=== PATIENT | male | born 1970 | race Caucasian/White ===

== ENCOUNTER 2020-05-17 09:13 | Outpatient (CLI) | payer OTHER, SELFPAY ==
--- NOTE | ~2020-05-17 | US_ITS ---
EXAMINATION: US soft tissue buttock RT DATE: 05/17/2020 09:48 INDICATION: Right buttock mass in an area where bedsores developed after surgery in 2016. TECHNIQUE: Multiple grayscale and Doppler ultrasound images of the right buttock were obtained. COMPARISON: None FINDINGS: There is a 3.7 x 2.3 x 3.3 cm hypoechoic mass with macrocalcifications involving the subcut aneous fat and musculature in the right buttock. IMPRESSION: 1. Mass with macrocalcifications involving the subcutaneous fat and musculature in the right buttock, most likely fat necrosis given the clinical history. Reviewed, dictated and finalized at location A. [employer]
[2020-05-17 10:23] LABS: Basophils Absolute Auto 0.1 K/mm3 (0.0-0.1); Basophils Percent Auto 0.6 % (0.2-1.2); Eosinophils Absolute Auto 0.2 K/mm3 (0-0.3); Eosinophils Percent Auto 1.4 % (0-4.4); Hematocrit 38.7 % (42.0-52.0); Hemoglobin 13.6 g/dL (14.0-18.0); Immature Granulocyte Percent A 0.9 % (0-0.5); Immature Reticulocyte Fraction 15.5 % (3.0-15.9); Lymphocytes Absolute Auto 1.44 K/mm3 (0.9-3.2); Lymphocytes Percent Auto 13.4 % (18.3-44.2); Mean Corpuscular HGB Conc 35.1 g/dl (32-36); Mean Corpuscular Volume 108.1 fl (80-100); Mean Platelet Volume 9.7 fl (7.4-10.4); Monocytes Absolute Auto 0.9 K/mm3 (0.1-0.6); Monocytes Percent Auto 8.4 % (2.6-8.5); Neutrophils Absolute Auto 8.1 K/mm3 (1.3-6.7); Neutrophils Percent Auto 75.3 % (45.5-73.1); Platelet Count Result 269 k/mm3 (150-375); Red Blood Count 3.58 M/mm3 (4.6-6.20); Red Cell Distribution Width 12.9 % (11.5-14.5); Reticulocyte Hemoglobin Conten 40.7 pg (28.2-35.7); Reticulocyte Percent 1.81 % (0.7-4.3); Reticulocytes Absolute 0.06 B/L (32.2-175.7); White Blood Count 10.8 K/mm3 (4.5-10.0)
[2020-05-17 10:56] LABS: Iron 102 ug/dL (49-181)
[2020-05-17 11:04] LABS: Alanine Aminotransferase 25 U/L (4-50); Albumin Level 3.9 g/dL (3.5-5.1); Alkaline Phosphatase 104 U/L (38-126); Anion Gap 6 mmol/L (8-16); Aspartate Amino Transferase 36 U/L (17-59); Bilirubin,Total 0.5 mg/dL (0.2-1.3); Blood Urea Nitrogen 16 mg/dL (9-20); Calcium 9.2 mg/dL (8.4-10.2); Carbon Dioxide 27 mmol/L (22-30); Chloride 104 mmol/L (98-107); Cholesterol 215 mg/dL (0-200); Estimated Glomerular Filt Rate > 60; Glucose 90 mg/dL (75-110); HDL Direct 65 mg/dL; Lactate Dehydrogenase 581 U/L (313-618); Percent Iron Saturation 32 % (20-50); Potassium 3.8 mmol/L (3.4-5.0); Sodium 137 mmol/L (137-145); Triglycerides 275 mg/dL (<150)
[2020-05-17 11:10] LABS: Vitamin D 25 Hydroxy 23.3 ng/mL
[2020-05-17 11:12] LABS: Creatinine Urine 112.1 mg/dL
[2020-05-17 11:15] LABS: LDL Cholesterol Direct 134 mg/dL; Transferrin 268 mg/dL (206-381)
[2020-05-17 11:17] LABS: MALB Creatinine Ratio < 5.4 mg/g (0-30); Microalbumin Urine Random < 6.0 mg/L (0-16.7)
[2020-05-17 11:35] LABS: Prostate Specific Antigen 0.5 ng/mL (< OR = 4.0)
[2020-05-17 12:09] LABS: Folic Acid 5.8 ng/mL (2.76->20)
[2020-05-17 13:33] LABS: Free T4 Free Thyroxine 0.77 ng/mL (0.78-2.19)
[2020-05-20 06:13] LABS: Triiodothyronine T3 Free 3.6 pg/mL (2.3-4.2)
== END 2020-05-17 09:14 | disposition home or self-care (01) ==
PROVIDERS: PCP Family Medicine; Visit Provider Nurse Practitioner Family
DX: M79.89 Other specified soft tissue disorders (principal)
CPT/HCPCS: 36415; 76705; 80053; 80061; 82043; 82306; 82607; 82728; 82746; 83540; 83550; 83615; 84153; 84439; 84443; 84466; 84481; 85025; 85046; G0103

== ENCOUNTER 2020-07-27 10:46 | Outpatient (CLI) | payer OTHER, SELFPAY ==
[2020-07-27 11:45] LABS: INR 0.9; Prothrombin Time 12.3 Seconds (11.1-14.7)
== END 2020-07-27 10:47 | disposition home or self-care (01) ==
LOC: ANHLAB 10:48
PROVIDERS: PCP Family Medicine; Visit Provider Surgery
DX: F10.20 Alcohol dependence, uncomplicated (principal)
CPT/HCPCS: 36415; 85610; 85730

== ENCOUNTER → 2020-08-07 03:46 | Outpatient (CLI) | payer OTHER, SELFPAY ==
[2020-08-07 20:31] LABS: SARS-CoV-2 RNA PCR Negative
== END ==
PROVIDERS: PCP Family Medicine; Visit Provider Surgery
DX: Z01.812 Encounter for preprocedural laboratory examination (principal); Z20.822 Contact with and (suspected) exposure to COVID-19
CPT/HCPCS: 93005; C9803; U0003; U0005

== ENCOUNTER 2020-08-07 09:30 | Outpatient (CLI) | payer OTHER, SELFPAY ==
--- NOTE | 2020-08-07 11:30 | ECG_ITS ---
Measurements Intervals [place] Rate: 95 P: 39 OR: 153 QRS: 41 QRSD: 93 T: 31 QT: 340 QTc: 428 Interpretive Statements SINUS RHYTHM BORDERLINE ST-T WAVE ABNORMALITY- ANTERIOR LEADS BASELINE ARTIFACT- I, II, AVR BORDERLINE ECG Electronically Signed On 08-07-2020 9:56:24 CDT by Good Reyes D.O.
== END 2020-08-07 09:31 | disposition home or self-care (01) ==
LOC: ANHSURGERY 09:34
PROVIDERS: PCP Family Medicine; Visit Provider Surgery
DX: Z01.810 Encounter for preprocedural cardiovascular examination (principal); F17.210 Nicotine dependence, cigarettes, uncomplicated; I10 Essential (primary) hypertension
CPT/HCPCS: 93005

== ENCOUNTER 2020-08-10 01:47 | Day surgery (SDC) | payer OTHER, SELFPAY ==
[2020-08-03 08:42] VITALS: BMI 32.5
--- NOTE | 2020-08-09 09:48 | WPDANESEPPF ---
Anes - Initial Pre Proc Eval Procedure: Operation Date: 08/10/20 11:30 Proposed Procedures p Excision Of Right Intramuscular Gluteal Mass - Manuel Cohen DO Date/Time: 08/09/20 09:48 Surgeon: Manuel Cohen DO Pre Op Diagnosis: 4cm Trunk Mass Patient Data Age: 49 Gender: M Height: 1.75 m Weight: 99.8 kg Allergies Allergy/AdvReac Type Severity Reaction Status Date / Time No Known Allergies Allergy Verified 08/10/20 10:14 Home Medications Medication Instructions Recorded Confirmed Type albuterol sulfate 90 mcg/actuation 1 inh INHALATION Q4-6H PRN 05/01/20 08/03/20 History breath activated powder inhaler,sensor aspirin 81 mg tablet,delayed 81 mg PO DAILY 05/01/20 08/10/20 History release atorvastatin 40 mg tablet 80 mg PO DAILY 05/01/20 08/03/20 History budesonide-formoterol HFA 80 2 puff INHALATION BID 05/01/20 08/03/20 History mcg-4.5 mcg/actuation aerosol inhaler fluticasone furoate 50 2 inh INHALATION BID 05/01/20 08/03/20 History mcg/actuation blister powder for inhalation nitroglycerin 0.4 mg sublingual 0.4 mg SUBLINGUAL Q5M PRN 05/01/20 08/03/20 History tablet clopidogrel 75 mg tablet 75 mg PO DAILY 07/27/20 08/10/20 History lisinopril 2.5 mg tablet 2.5 mg PO DAILY 07/27/20 08/03/20 History oxycodone-acetaminophen 10 mg-325 1 tablet PO Q6H PRN 07/27/20 08/03/20 History mg tablet pantoprazole 40 mg PO DAILY 08/03/20 08/03/20 History ECG: Date of Service: 08/07/20 Procedure(s): CA 12 lead EKG Accession Number(s): [id number] cc: ~ Measurements Intervals [place] Rate: 95 P: 39 MT: 153 QRS: 41 QRSD: 93 T: 31 QT: 340 QTc: 428 Interpretive Statements SINUS RHYTHM BORDERLINE ST-T WAVE ABNORMALITY- ANTERIOR LEADS BASELINE ARTIFACT- I, II, AVR BORDERLINE ECG Electronically Signed On 08-07-2020 9:56:24 CDT by Good Reyes D.O. Dictated By: Good Reyes DO 08/07/20 0956 Patient hx anesthesia problems: none Family hx anesthesia problems: none PMFSH Past Medical History Medical History (Updated 08/09/20 @ 09:48 by Chance Elliott MD) Alcoholism Anxiety Arthritis BMI 31.0-31.9,adult Bone spur CAD (coronary artery disease) Carpal tunnel syndrome CHF (congestive heart failure) Chronic bilateral low back pain Chronic bronchitis Chronic pain syndrome Chronic systolic heart failure Congenital meatal stenosis COPD (chronic obstructive pulmonary disease) Coronary artery disease involving autologous artery coronary bypass graft Degenerative disc disease Drug dependence Emphysema lung Epididymitis Helicobacter pylori infection History of heart attack Hyperlipidemia Peptic ulcer disease Pericardial effusion Pinched nerve Pneumonia Shoulder joint pain Spinal stenosis Tobacco abuse Surgical History Surgical History History of appendectomy History of intravascular stent placement 7 stents Hx of CABG Family History Family History Father Heart disease Sibling Cancer Grandparent Acute myocardial infarction Other Colon cancer Other Heart disease Hypertension Social History Social History Smoking packs per day: 1 Smoking cigarettes per day: 20.0 Years smoked: 30 Smoking pack-years: 30.00 Smoking status: Current every day smoker Tobacco type: cigarettes Alcohol intake: current Alcohol use details: 1 PINT VODKA/DAY Substance use: never Substance use type: does not use Living arrangements: other Additional occupation/education comments: [employer]
[2020-08-10 10:18] VITALS: BP 134/76; PULSE 74; RESP 18; TEMP 36.4; O2SAT 98
[2020-08-10] MEDS: LACTATED RINGERS 1,000 ML 30 ML IV CONT (10:23)
--- NOTE | 2020-08-10 11:21 | WPDHPUPDATE1 ---
History and Physical Update Update Date/Time: 08/10/20 11:21 History and Physical has been reviewed, including an updated exam of the patient. There are NO changes in the patient's condition. Risks, benefits, and alternatives have been discussed and questions answered. Patient agrees to proceed with procedure.
[2020-08-10] MEDS: ceFAZolin 2 GM/D5W 50 ML 2 GM/50 ML BAG IVPB (11:44)
[2020-08-10] MEDS: BACITRACIN OINTMENT 15 GM TUBE 1 APPLIC TOPICAL (12:27)
[2020-08-10] MEDS: LIDO 1%/EPINEPHRINE 1:100,000 50 ML VIAL INFILTRATE (12:28)
[2020-08-10 12:50] VITALS: BP 150/94; PULSE 82; RESP 14; O2SAT 97
--- NOTE | 2020-08-10 12:52 | P.OP_ITS ---
Procedure Note - Detailed Date of procedure: 08/10/20 Pre-op diagnosis: 7 cm intramuscular right gluteal mass Post-op diagnosis: same Procedure performed: Excision of 7 cm intramuscular right gluteal mass with layered closure Description of procedure: * Procedure as well as risks, benefits, and alternatives were discussed with the patient. Written consent was obtained and placed in chart prior to procedure. Patient was brought back to surgical suite. He was placed in left lateral decubitus position on the operating table. IV sedation was then administered by the Anesthesia Department. His right gluteal area was prepped and draped in sterile fashion using chlorhexidine prep. Time-out was done to confirm patient and procedure. 1% lidocaine with epinephrine was infiltrated locally around the palpable mass. A 7 cm oblique incision was made in the right upper gluteal region about 4 cm lateral to the intergluteal cleft. Electrocautery was then used for hemostasis and for dissection down through the subcutaneous tissue. The calcified mass was identified and carefully dissected free from the surrounding subcutaneous attachments. The mass extended into the gluteal muscle fibers and this was carefully dissected free from the gluteal muscle with electrocautery. Hemostasis was achieved along the way. The mass was completely excised intact and was sent to the lab for pathology. The wound bed was then inspected no other masses appeared present. Hemostasis appeared adequate. The area was irrigated with sterile saline. Heriberto's fascia and the deep dermis was approximated using 2 0 Vicryl simple interrupted sutures. The skin edges were then reapproximated using 3 0 nylon vertical mattress interrupted sutures. Bacitracin ointment was then applied followed by 4 x 4 gauze and Medipore tape. The patient was then awakened from anesthesia and transferred to recovery. Anesthesia: MAC and local (1% lidocaine with epinephrine) Surgeon: Manuel Cohen DO Estimated blood loss (mL): 10 Pathology: yes (7 cm intramuscular right gluteal mass) Complications: No immediate complications Condition: stable Disposition: same day Findings: This is a 49-year-old man who presented with a painful mass on his right buttock region. He has a prior history of coronary artery bypass graft and was intubated for a prolonged period of time postoperatively. He developed a decubitus ulcer that took a long time to heal. Since this has healed he has had this residual mass in the right gluteal region. It causes some pain with sitting. He has had a prior ultrasound which showed evidence of a mass located in the intramuscular right gluteal region. Discussions were made with the patient about treatment options and decision was made to proceed with excision of the intramuscular gluteal mass. The right gluteal mass was excised. This appeared to be a calcified and fibrotic mass within the subcutaneous space that also extended into the right gluteal muscle. The mass was carefully dissected free and was excised completely. The deeper Heriberto's fascia was approximated with 2 0 Vicryl simple interrupted sutures and then the deep dermis was also approximated with 2 0 Vicryl simple interrupted sutures. The skin was then approximated with 3 0 nylon vertical mattress interrupted sutures. Specimens sent to the lab for pathology.
[2020-08-10 13:20] VITALS: BP 150/94; PULSE 82; RESP 14
== END 2020-08-10 13:35 | disposition home or self-care (01) ==
PROVIDERS: PCP Family Medicine; Visit Provider Surgery
PROC: (CPT 21933; principal; 2020-08-10 11:30)
DX: M79.89 Other specified soft tissue disorders (principal); Z79.82 Long term (current) use of aspirin; Z79.51 Long term (current) use of inhaled steroids; I25.10 Atherosclerotic heart disease of native coronary artery without angina pectoris; M19.90 Unspecified osteoarthritis, unspecified site; J44.9 Chronic obstructive pulmonary disease, unspecified; I50.22 Chronic systolic (congestive) heart failure; I31.3 Pericardial effusion (noninflammatory); Z87.11 Personal history of peptic ulcer disease; Z87.898 Personal history of other specified conditions; Z95.5 Presence of coronary angioplasty implant and graft; Z95.1 Presence of aortocoronary bypass graft; E78.5 Hyperlipidemia, unspecified; Q64.33 Congenital stricture of urinary meatus; N45.1 Epididymitis; F17.210 Nicotine dependence, cigarettes, uncomplicated; E66.9 Obesity, unspecified; Z68.31 Body mass index [BMI] 31.0-31.9, adult
CPT/HCPCS: 21933; 88304; A9270; J0690; J2250; J2704; J3010; J7120

== ENCOUNTER 2020-08-16 20:30 | Emergency (ER) | payer OTHER, SELFPAY ==
--- NOTE | ~2020-08-16 | XR_ITS ---
EXAMINATION: XR chest 2V DATE: 08/16/2020 21:08 INDICATION: Shortness of breath and leg swelling. TECHNIQUE: PA and lateral views of the chest were obtained. COMPARISON: None FINDINGS: The lungs are clear with no focal airspace opacities, pulmonary edema, pleural effusion or pneumothor ax. Cardiomegaly. Median sternotomy wires and mediastinal surgical clips are seen, likely from prior coronary artery bypass grafting. There is also been prior coronary artery stenting. Mild thoracic spo ndylosis. IMPRESSION: 1. No acute cardiopulmonary disease. 2. Cardiomegaly. Reviewed, dictated and finalized at location A.
--- NOTE | ~2020-08-16 | CT_ITS ---
EXAMINATION: CTA chest PE protocol DATE: 08/16/2020 23:37 INDICATION: Shortness of breath. TECHNIQUE: Computed tomography (CT) pulmonary angiogram of the chest was performed with 100 mL Omnipa que-350 intravenous contrast. Additional 3D reconstructions utilizing coronal maximum intensity proje ction (MIP) were performed. Automated exposure control and iterative reconstruction technique were em ployed. The dose-length product was 642.45 mGy-cm. COMPARISON: None FINDINGS: Good contrast opacification of the pulmonary arteries. There is mild streak artifact from dense contr ast in the superior vena cava and right atrium. Mild scattered respiratory motion artifact which does not significantly limit evaluation. No pulmonary embolism. Mild emphysema. Minimal dependent atelect asis in the bilateral lower lobes. No pneumonia, pulmonary edema or pleural effusion. Cardiomegaly. A therosclerotic coronary artery calcifications and likely coronary artery stenting. Median sternotomy wires and changes of prior coronary artery bypass grafting. No pericardial effusion. No pathologicall y enlarged thoracic lymphadenopathy. Thoracic aorta is normal in caliber with no dissection. Visualiz ed upper abdomen is unremarkable. Moderate disc height loss at T12-L1, C5-C6 and C6-C7. Mild interven ing thoracic spondylosis. IMPRESSION: 1. No pulmonary embolism or other acute cardiopulmonary disease. 2. Mild emphysema. 3. Cardiomegaly. Reviewed, dictated and finalized at location A.
[2020-08-16 20:45] VITALS: BP 117/63; PULSE 98; RESP 20; TEMP 36.4; O2SAT 95
--- NOTE | 2020-08-16 20:48 | ECG_ITS ---
Measurements Intervals [place] Rate: 94 P: 53 ND: 155 QRS: 61 QRSD: 88 T: 54 QT: 350 QTc: 439 Interpretive Statements SINUS RHYTHM NORMAL ECG Electronically Signed On 08-17-2020 7:31:27 CDT by Good Reyes D.O.
[2020-08-16 21:01] LABS: Basophils Absolute Auto 0.1 K/mm3 (0.0-0.1); Basophils Percent Auto 0.7 % (0.2-1.2); Eosinophils Absolute Auto 0.1 K/mm3 (0-0.3); Eosinophils Percent Auto 1.4 % (0-4.4); Hematocrit 36.2 % (42.0-52.0); Hemoglobin 12.3 g/dL (14.0-18.0); Immature Granulocyte Absolute 0.05 K/mm3 (0.00-0.031); Immature Granulocyte Percent A 0.6 % (0-0.5); Lymphocytes Absolute Auto 2.27 K/mm3 (0.9-3.2); Lymphocytes Percent Auto 25.6 % (18.3-44.2); Mean Corpuscular Hemoglobin 35.3 pg (26-34); Mean Platelet Volume 8.9 fl (7.4-10.4); Monocytes Absolute Auto 0.9 K/mm3 (0.1-0.6); Monocytes Percent Auto 10.6 % (2.6-8.5); Neutrophils Absolute Auto 5.4 K/mm3 (1.3-6.7); Neutrophils Percent Auto 61.1 % (45.5-73.1); Platelet Count Result 258 k/mm3 (150-375); Red Blood Count 3.48 M/mm3 (4.6-6.20); White Blood Count 8.9 K/mm3 (4.5-10.0)
[2020-08-16 21:09] VITALS: BP 115/60; PULSE 94; RESP 17; TEMP 36.7; O2SAT 94
[2020-08-16 21:11] LABS: INR 0.9; Prothrombin Time 12.9 Seconds (11.1-14.7)
[2020-08-16 21:12] LABS: Alanine Aminotransferase 20 U/L (4-50); Alkaline Phosphatase 105 U/L (38-126); Anion Gap 6 mmol/L (8-16); Aspartate Amino Transferase 46 U/L (17-59); Bilirubin,Total 0.2 mg/dL (0.2-1.3); Blood Urea Nitrogen 9 mg/dL (9-20); Calcium 8.3 mg/dL (8.4-10.2); Carbon Dioxide 30 mmol/L (22-30); Chloride 101 mmol/L (98-107); Estimated CRCL calculation 121 ml/min; Estimated Glomerular Filt Rate > 60; Glucose 97 mg/dL (75-110); Potassium 3.7 mmol/L (3.4-5.0); Sodium 137 mmol/L (137-145)
[2020-08-16 21:13] LABS: Partial Thromboplastin Time 26.7 SECONDS (22.3-36.8)
[2020-08-16 21:24] LABS: NT Pro B Type Natriuretic Pept 50 pg/mL (5-100); Troponin I < 0.012 ng/mL (0.000-0.034)
--- NOTE | 2020-08-16 21:33 | ED.SOB ---
HPI - SOB/Dyspnea General Chief Complaint: Shortness of Breath/Dyspnea Stated Complaint: Swollen everywhere,Sob Time Seen by Provider: 08/16/20 21:17 Source: patient Mode of arrival: ambulatory Limitations: no limitations History of Present Illness HPI Narrative: Patient is a 49-year-old male complaining of shortness of breath, worse with exertion, accompanied by increasing lower extremity edema x1 week. Patient states he has a history of COPD and congestive heart failure. Patient states he had a surgery a week ago and since then his shortness of breath and edema is worse. Patient states that he saw his doctor and was placed on Lasix but provided no relief. Patient denies any chest pain, dull pain, abdominal distention, nausea, vomiting, fever or chills. Related Data Home Medications Medication Instructions Recorded Confirmed albuterol sulfate 90 mcg/actuation 1 inh INHALATION Q4-6H PRN 05/01/20 08/03/20 breath activated powder inhaler,sensor aspirin 81 mg tablet,delayed 81 mg PO DAILY 05/01/20 08/10/20 release atorvastatin 40 mg tablet 80 mg PO DAILY 05/01/20 08/03/20 budesonide-formoterol HFA 80 2 puff INHALATION BID 05/01/20 08/03/20 mcg-4.5 mcg/actuation aerosol inhaler fluticasone furoate 50 2 inh INHALATION BID 05/01/20 08/03/20 mcg/actuation blister powder for inhalation nitroglycerin 0.4 mg sublingual 0.4 mg SUBLINGUAL Q5M PRN 05/01/20 08/03/20 tablet clopidogrel 75 mg tablet 75 mg PO DAILY 07/27/20 08/10/20 lisinopril 2.5 mg tablet 2.5 mg PO DAILY 07/27/20 08/03/20 oxycodone-acetaminophen 10 mg-325 1 tablet PO Q6H PRN 07/27/20 08/03/20 mg tablet pantoprazole 40 mg PO DAILY 08/03/20 08/03/20 Allergies Allergy/AdvReac Type Severity Reaction Status Date / Time No Known Allergies Allergy Verified 08/10/20 10:14 Review of Systems Review of Systems: All systems reviewed & are unremarkable except as noted in HPI and below Constitutional: Constitutional: Denies body ache(s), Denies chills, Denies excessive sweating, Denies fatigue, Denies fever(s), Denies headache(s), Denies lethargy, Denies malaise, Denies weakness and Denies weight loss Eyes: Eyes: Denies blurry vision, Denies change in vision and Denies loss of vision ENT: Denies dizziness, Denies ear discharge, Denies headache(s), Denies lip swelling, Denies epistaxis, Denies nasal congestion, Denies neck pain, Denies throat swelling and Denies tongue swelling Cardiovascular: Cardiovascular: Denies chest pain, Denies chest pain at rest, Denies chest pain with activity, Denies diaphoresis, Denies rapid heart rate, Denies irregular heart rhythm, Denies lightheadedness and Denies palpitations Respiratory: Respiratory: Denies chest congestion, Denies cough and Denies hemoptysis Gastrointestinal: Gastrointestinal: Denies abdominal pain, Denies melena, Denies hematochezia, Denies diarrhea, Denies nausea, Denies vomiting and Denies hematemesis Musculoskeletal: Musculoskeletal: Denies abnormal gait, Denies deformity, Denies joint swelling, Denies limited range of motion, Denies neck pain and Denies numbness Neurologic: Denies Abnormal speech present, Denies abnormal gait, Denies confusion, Denies dizziness, Denies headache(s), Denies focal weakness, Denies loss of vision, Denies numbness, Denies Other visual disturbances, Denies Sensory deficit (Neuro) and Denies weakness Psychiatric: Psychiatric: Denies confusion, Denies depression, Denies auditory hallucinations, Denies homicidal ideation and Denies suicidal ideation Endocrine: Endocrine: Denies cold intolerance, Denies excessive sweating, Denies fatigue, Denies heat intolerance and Denies palpitations Hematologic/Lymphatic: Hematologic/Lymphatic: Denies easy bleeding and Denies easy bruising Allergic/Immunologic: Allergic/Immunologic: Denies lip swelling, Denies throat swelling and Denies tongue swelling PMFSH Past Medical History Medical History (Reviewed 08/16/20 @ 21:40 by Ori Ruiz
[2020-08-16 22:06] VITALS: BP 116/71
[2020-08-17 00:49] VITALS: BP 117/87; PULSE 82; RESP 18; O2SAT 92
[2020-08-17] MEDS: MORPHINE SULFATE (*CRX) 2 MG/ML INJ IV PUSH (02:11)
[2020-08-17] MEDS: FUROSEMIDE INJ 40 MG/4 ML VIAL 20 MG IV PUSH (02:11)
[2020-08-17 03:50] VITALS: O2SAT 96
[2020-08-17 03:54] VITALS: TEMP 36.8
== END 2020-08-17 03:56 | disposition home or self-care (01) ==
PROVIDERS: Emergency Provider Emergency Medicine; PCP Family Medicine
DX: I50.22 Chronic systolic (congestive) heart failure (principal); J43.9 Emphysema, unspecified; G89.4 Chronic pain syndrome; M19.90 Unspecified osteoarthritis, unspecified site; Z79.82 Long term (current) use of aspirin; I25.2 Old myocardial infarction; I25.810 Atherosclerosis of coronary artery bypass graft(s) without angina pectoris; E78.5 Hyperlipidemia, unspecified; Z87.11 Personal history of peptic ulcer disease; Z95.1 Presence of aortocoronary bypass graft; Z95.5 Presence of coronary angioplasty implant and graft; F17.210 Nicotine dependence, cigarettes, uncomplicated
CPT/HCPCS: 36415; 71046; 71275; 80053; 83880; 84484; 85025; 85610; 85730; 93005; 96374; 96375; 99284; J1940; J2270; Q9967

== ENCOUNTER 2020-08-28 09:47 | Outpatient (CLI) | payer OTHER, SELFPAY ==
[2020-08-28 11:40] LABS: Basophils Absolute Auto 0.1 K/mm3 (0.0-0.1); Basophils Percent Auto 0.7 % (0.2-1.2); Eosinophils Absolute Auto 0.1 K/mm3 (0-0.3); Eosinophils Percent Auto 1.1 % (0-4.4); Hematocrit 34.7 % (42.0-52.0); Hemoglobin 11.7 g/dL (14.0-18.0); Immature Granulocyte Absolute 0.03 K/mm3 (0.00-0.031); Immature Granulocyte Percent A 0.4 % (0-0.5); Lymphocytes Absolute Auto 1.34 K/mm3 (0.9-3.2); Lymphocytes Percent Auto 18.5 % (18.3-44.2); Mean Corpuscular HGB Conc 33.7 g/dl (32-36); Mean Corpuscular Hemoglobin 35.1 pg (26-34); Mean Corpuscular Volume 104.2 fl (80-100); Mean Platelet Volume 9.6 fl (7.4-10.4); Monocytes Absolute Auto 0.8 K/mm3 (0.1-0.6); Monocytes Percent Auto 10.9 % (2.6-8.5); Neutrophils Percent Auto 68.4 % (45.5-73.1); Platelet Count Result 256 k/mm3 (150-375); Red Blood Count 3.33 M/mm3 (4.6-6.20); Red Cell Distribution Width 14.6 % (11.5-14.5); White Blood Count 7.3 K/mm3 (4.5-10.0)
[2020-08-28 12:06] LABS: Anion Gap 4 mmol/L (8-16); Blood Urea Nitrogen 8 mg/dL (9-20); Calcium 9.1 mg/dL (8.4-10.2); Carbon Dioxide 31 mmol/L (22-30); Chloride 105 mmol/L (98-107); Estimated Glomerular Filt Rate > 60; Glucose 91 mg/dL (75-110); Potassium 4.1 mmol/L (3.4-5.0); Sodium 140 mmol/L (137-145)
[2020-08-28 12:15] LABS: NT Pro B Type Natriuretic Pept 222 pg/mL (5-100)
== END 2020-08-28 09:48 | disposition home or self-care (01) ==
PROVIDERS: PCP Family Medicine; Visit Provider Nurse Practitioner Family
DX: I50.813 Acute on chronic right heart failure (principal); I11.0 Hypertensive heart disease with heart failure; R60.9 Edema, unspecified; J18.9 Pneumonia, unspecified organism; R06.02 Shortness of breath
CPT/HCPCS: 36415; 80048; 83880; 85025

== ENCOUNTER 2020-09-06 13:52 | Inpatient (IN) | payer OTHER, SELFPAY ==
[2020-09-06] VITALS (16 sets, daily range): BP systolic 75–155; BP diastolic 34–83; PULSE 72–89; RESP 13–22; TEMP 36.1–36.3; O2SAT 84–100; BMI 30.4
--- NOTE | ~2020-09-06 | NM_ITS ---
EXAMINATION: NM pulmonary perfusion DATE: 09/06/2020 18:47 INDICATION: Shortness of breath, elevated d-dimer TECHNIQUE: 5.5 mCi Tc-99m MAA was administered intravenously for perfusion images. Scintigraphic yovani ges of the chest were obtained. COMPARISON: None FINDINGS: Perfusion images show normal perfusion. IMPRESSION: 1. Low probability for pulmonary embolism. Reviewed, dictated and finalized at location A.
--- NOTE | ~2020-09-06 | XR_ITS ---
EXAMINATION: XR chest 1V portable DATE: 09/06/2020 14:33 INDICATION: Chest pain. TECHNIQUE: A single frontal view of the chest was obtained. COMPARISON: Chest 2 views 08/16/2020, chest CT 08/16/2020 FINDINGS: There is mild atelectasis in the lower lung zones. No pleural effusion or pneumothorax. Car diomegaly is noted. Median sternotomy wires and mediastinal surgical clips are seen, likely from prio r coronary artery bypass grafting. IMPRESSION: 1. Mild atelectasis in the lower lung zones. 2. Cardiomegaly. Reviewed, dictated and finalized at location A.
--- NOTE | 2020-09-06 14:13 | ECG_ITS ---
Measurements Intervals [place] Rate: 78 P: 44 TX: 167 QRS: 54 QRSD: 102 T: 52 QT: 410 QTc: 467 Interpretive Statements SINUS RHYTHM NORMAL ECG Electronically Signed On 09-06-2020 14:16:54 CDT by Good Reyes D.O.
--- NOTE | 2020-09-06 14:22 | ED.CHESTPAIN ---
HPI - Chest Pain General Chief Complaint: Chest Pain Stated Complaint: Chest Pain Time Seen by Provider: 09/06/20 14:13 Source: patient Mode of arrival: ambulatory Limitations: no limitations History of Present Illness HPI narrative: Patient is a 49-year-old male complaining of chest pain, midsternal, pressure, 8 out of 10, nonradiating accompanied by shortness of breath started approximately 3 days ago. Patient was seen at [facility], was admitted had a cardiac stress test done and was told that it was abnormal and he needed a cardiac cath but patient signed himself out AMA because he was not treated right . Patient has a history of coronary artery disease with 7 stents. Patient denies any headache, dizziness, abdominal pain, nausea, vomiting, fever or chills. Related Data Home Medications Medication Instructions Recorded Confirmed albuterol sulfate 90 mcg/actuation 1 inh INHALATION Q4-6H PRN 05/01/20 08/24/20 breath activated powder inhaler,sensor aspirin 81 mg tablet,delayed 81 mg PO DAILY 05/01/20 08/24/20 release atorvastatin 40 mg tablet 80 mg PO DAILY 05/01/20 08/24/20 budesonide-formoterol HFA 80 2 puff INHALATION BID 05/01/20 08/24/20 mcg-4.5 mcg/actuation aerosol inhaler fluticasone furoate 50 2 inh INHALATION BID 05/01/20 08/24/20 mcg/actuation blister powder for inhalation nitroglycerin 0.4 mg sublingual 0.4 mg SUBLINGUAL Q5M PRN 05/01/20 08/24/20 tablet clopidogrel 75 mg tablet 75 mg PO DAILY 07/27/20 08/24/20 lisinopril 2.5 mg tablet 2.5 mg PO DAILY 07/27/20 08/24/20 oxycodone-acetaminophen 10 mg-325 1 tablet PO Q6H PRN 07/27/20 08/23/20 mg tablet pantoprazole 40 mg PO DAILY 08/03/20 08/24/20 Allergies Allergy/AdvReac Type Severity Reaction Status Date / Time No Known Allergies Allergy Verified 08/24/20 09:46 Review of Systems Review of Systems: All systems reviewed & are unremarkable except as noted in HPI and below Constitutional: Constitutional: Denies body ache(s), Denies chills, Denies excessive sweating, Denies fever(s), Denies headache(s), Denies lethargy, Denies malaise and Denies weight loss Eyes: Eyes: Denies blurry vision, Denies change in vision and Denies loss of vision ENT: Denies dizziness, Denies ear discharge, Denies headache(s), Denies lip swelling, Denies epistaxis, Denies nasal congestion, Denies neck pain, Denies throat swelling and Denies tongue swelling Cardiovascular: Cardiovascular: Denies diaphoresis, Denies rapid heart rate, Denies edema, Denies irregular heart rhythm, Denies lightheadedness and Denies palpitations Respiratory: Respiratory: Denies chest congestion, Denies cough and Denies hemoptysis Gastrointestinal: Gastrointestinal: Denies abdominal pain, Denies melena, Denies hematochezia, Denies diarrhea, Denies nausea, Denies vomiting and Denies hematemesis Musculoskeletal: Musculoskeletal: Denies abnormal gait, Denies deformity, Denies joint swelling, Denies limited range of motion, Denies neck pain and Denies numbness Neurologic: Denies Abnormal speech present, Denies abnormal gait, Denies confusion, Denies dizziness, Denies headache(s), Denies focal weakness, Denies loss of vision, Denies numbness, Denies Other visual disturbances, Denies Sensory deficit (Neuro) and Denies weakness Psychiatric: Psychiatric: Denies confusion, Denies depression, Denies auditory hallucinations, Denies homicidal ideation and Denies suicidal ideation Endocrine: Endocrine: Denies cold intolerance, Denies excessive sweating, Denies fatigue, Denies heat intolerance and Denies palpitations Hematologic/Lymphatic: Hematologic/Lymphatic: Denies easy bleeding and Denies easy bruising Allergic/Immunologic: Allergic/Immunologic: Denies lip swelling, Denies throat swelling and Denies tongue swelling PMFSH Past Medical History Medical History Alcoholism Anxiety Arthritis BMI 31.0-31.9,adult Bone spur CAD (coronar
[2020-09-06] MEDS: SODIUM CHLORIDE 0.9% IV 1,000 ML 999 ML IV CONT (14:25)
[2020-09-06] MEDS: ASPIRIN 81 MG CHEWABLE TABLET 324 MG PO (14:27)
--- NOTE | 2020-09-06 14:30 | PC.NURSE ---
Dr. Stapleton at bedside, aware of hypotension, order for manual BP and give 500cc fluid bolus. Pt drowsy but arousable, easily drifts off to sleep, ~84% RA sats with quick improvement on 3L NC (states he qualifies for home O2, also has sleep study scheduled)
[2020-09-06 14:44] LABS: Basophils Percent Auto 0.5 % (0.2-1.2); Eosinophils Absolute Auto 0.2 K/mm3 (0-0.3); Hematocrit 32.6 % (42.0-52.0); Hemoglobin 11.2 g/dL (14.0-18.0); Immature Granulocyte Absolute 0.08 K/mm3 (0.00-0.031); Immature Granulocyte Percent A 0.9 % (0-0.5); Lymphocytes Absolute Auto 1.74 K/mm3 (0.9-3.2); Lymphocytes Percent Auto 20.4 % (18.3-44.2); Mean Corpuscular HGB Conc 34.4 g/dl (32-36); Mean Corpuscular Hemoglobin 35.4 pg (26-34); Mean Corpuscular Volume 103.2 fl (80-100); Mean Platelet Volume 9.5 fl (7.4-10.4); Monocytes Absolute Auto 1.1 K/mm3 (0.1-0.6); Monocytes Percent Auto 12.6 % (2.6-8.5); Neutrophils Absolute Auto 5.4 K/mm3 (1.3-6.7); Neutrophils Percent Auto 63.6 % (45.5-73.1); Platelet Count Result 212 k/mm3 (150-375); Red Blood Count 3.16 M/mm3 (4.6-6.20); Red Cell Distribution Width 14.6 % (11.5-14.5); White Blood Count 8.5 K/mm3 (4.5-10.0)
[2020-09-06 14:56] LABS: Prothrombin Time 13.7 Seconds (11.1-14.7)
[2020-09-06 14:57] LABS: Partial Thromboplastin Time 27.5 SECONDS (22.3-36.8)
[2020-09-06 14:59] LABS: Alanine Aminotransferase 45 U/L (4-50); Albumin Level 3.8 g/dL (3.5-5.1); Alkaline Phosphatase 87 U/L (38-126); Anion Gap 11 mmol/L (8-16); Aspartate Amino Transferase 57 U/L (17-59); Bilirubin,Total 0.2 mg/dL (0.2-1.3); Blood Urea Nitrogen 19 mg/dL (9-20); Calcium 8.7 mg/dL (8.4-10.2); Carbon Dioxide 22 mmol/L (22-30); Chloride 102 mmol/L (98-107); D Dimer 0.49 ug/mL (<0.48); Estimated CRCL calculation 41 ml/min; Estimated Glomerular Filt Rate 29; Glucose 98 mg/dL (75-110); Potassium 3.7 mmol/L (3.4-5.0); Sodium 135 mmol/L (137-145)
--- NOTE | 2020-09-06 15:05 | PC.NURSE ---
Pt sitting up eating [employer] brought in by significant other, Dr. Pieter cleaning. Pt reports 11/27 CP. Fluid bolus and dopamine drip initiated
[2020-09-06] MEDS: DOPamine 400 MG/D5W 250 ML 400 MG/250 ML BAG 9.36 MG IV CONT (15:09)
[2020-09-06 15:11] LABS: NT Pro B Type Natriuretic Pept 148 pg/mL (5-100); Troponin I < 0.012 ng/mL (0.000-0.034)
[2020-09-06] MEDS: SODIUM CHLORIDE 0.9% IV 500 ML (16:58)
[2020-09-06 17:40] LABS: Troponin I < 0.012 ng/mL (0.000-0.034)
--- NOTE | 2020-09-06 18:28 | PC.NURSE ---
Pt off floor to nuc med via cart
--- NOTE | 2020-09-06 20:21 | PC.NURSE ---
This patient, Elder Ro Jr., was admitted to IMU Room 204-01 on 09/06/20 at 2015. Patient/family oriented to hospital policies and general routines including ID bracelet, bed and alarms, visiting hours, pain management, procedures, bathroom and other care routines, personal items, smoking policy, room service/diet, and visiting hours. Information on how to activate the Rapid Response Team has been discussed. Patient/Family are encouraged to report perceived risks to care and to ask questions if they do not understand what they are told or what they should do.
[2020-09-06 20:52] LABS: Troponin I < 0.012 ng/mL (0.000-0.034)
[2020-09-06] MEDS: chlordiazePOXIDE (*CRX) 25 MG CAPSULE 50 MG PO (21:33)
--- NOTE | 2020-09-06 22:52 | PM.IMHP ---
H&P: HPI History of Present Illness Date/Time: 09/06/20 22:52 this is a 49-year-old male patient with a past medical history of coronary artery disease with a 1 vessel CABG in 2016 and a total of 7 coronary stents. The patient was recently seen here in the emergency room on 08/16/2020 with complaints of shortness of breath and chest pain. Patient was diagnosed with congestive heart failure and was discharged to home from ER. Since that time the patient had been admitted [facility] and stated that he failed his stress test and was scheduled to have a cardiac catheterization. However the patient tells me that he signed himself out against medical advice because he felt that he was not being taking care of we that he should. He stated that they would not give him any pain medication for his chronic lower back pain and his right buttocks pain. The patient tells me that he has been having chest pain on and off for the last month. He states that it is more pressure any short of breath with this. He also goes on to tell me that he does have COPD and he is getting ready to have a pulmonary function test. He does not wear oxygen at home but stated he is getting ready to be tested for home oxygen. The patient tells me that he takes his home medications as prescribed. The patient tells me that he drinks a 5th of vodka on a daily basis in the last time he drink was this morning. He goes on to tell me that he abused cocaine but it has been 4 years since he has used any cocaine. Of chest pain that was midsternal and was a pressure 8/10. It was nonradiating. The patient stated he short of breath with minimal exertion. The patient was snoring loudly when I entered the room and appeared to be comfortable. All 3 troponins have been found to be negative. The patient was given an aspirin and nitro in the emergency room. Cardiology has been consulted. Normal sinus rhythm normal EKG. For pulmonary embolism. Chest x-ray was read as mild atelectasis in the lower lung zones. Cardiomegaly. Creatinine is 2.4. GFR is noted to be 29. Previously his renal functions were normal. The patient is being admitted to inpatient services on the date of service is 09/06/2020. Chief Complaint: Chest pain Review of Systems Review of Systems: All systems reviewed & are unremarkable except as noted in HPI and below Constitutional: Constitutional: Reports as per HPI and Reports no additional constitutional complaints Eyes: Eyes: Reports as per HPI and Reports no additional eye complaints ENT: Reports system reviewed and no additional complaints, except as documented and Reports Normal hearing present Cardiovascular: Cardiovascular: Reports no additional cardiovascular complaints Respiratory: Respiratory: Reports no additional respiratory complaints and Reports no additional respiratory complaints Gastrointestinal: Gastrointestinal: Reports as per HPI and Reports no additional gastrointestinal complaints Musculoskeletal: Musculoskeletal: Reports no additional musculoskeletal complaints Integumentary/Breasts: Skin/Breast: Reports system reviewed and no additional complaints, except as docu and Reports as per HPI Neurologic: Reports system reviewed and no additional complaints, except as documented, Reports as per HPI and Reports Normal hearing present Psychiatric: Psychiatric: Reports no additional psychiatric complaints and Reports as per HPI Endocrine: Endocrine: Reports no additional endocrine complaints Hematologic/Lymphatic: Hematologic/Lymphatic: Reports no additional hematologic/lymphatic complaints Allergic/Immunologic: Allergic/Immunologic: Reports no additional allergic/immunologic complaints [facility] Past Medical History Medical History (Updated 09/06/20 @ 23:22 by Lilliana Gutierrez NP) Alcoholism Anxiety Arthritis BMI 31.0-31.9,adult Bone spur CAD (coronary artery disease) Carpal tunnel syndrome CHF (congestive heart failure) Chronic bilate
[2020-09-07] VITALS (16 sets, daily range): BP systolic 110–149; BP diastolic 51–89; PULSE 63–87; RESP 16–22; TEMP 36.1–36.6; O2SAT 95–100
--- NOTE | 2020-09-07 | ECHO_ITS ---
Patient Info Name: Elder Ro Age: 49 years : 1970 Gender: Male Ht: 69 in Wt: 205 lbs BSA: 2.15 m2 HR: 77 bpm BP: 131 / 75 mmHg Technical Quality: Good Exam Date: 09/07/2020 9:45 AM Exam Location: [facility] Patient Status: Inpatient Admit Date: 09/06/2020 Staff Ordering Physician: Lilliana Gutierrez NP Anode Rebuilder: Thai Fox RDCS, RT Attending Provider: Flavia Garcia MD Referring Physician: Matt SANCHEZ; Exam Type: CA echo doppler color flow Study Info Indications I50.9 - Heart failure, unspecified Complete two-dimensional, color flow and Doppler transthoracic echocardiogram is performed. Strain analysis performed. Summary 1. Complete two-dimensional, color flow and Doppler transthoracic echocardiogram is performed. 2. Left ventricular chamber dimension is normal. 3. Left ventricular wall thickness is borderline increased. 4. Left atrial chamber dimension is mildly enlarged. 5. There is trace aortic valve regurgitation. 6. There is trace mitral valve regurgitation. 7. The mitral valve has thickened leaflets. 8. Left ventricular systolic function is normal with an estimated ejection fraction of 5560.0 %. 9. TDS. Left Ventricle Left ventricular chamber dimension is normal. Left ventricular wall thickness is borderline increased. Left ventricular systolic function is normal with an estimated ejection fraction of 5560.0 %. Right Ventricle Right ventricle chamber size are normal. Left Atria Left atrial chamber dimension is mildly enlarged. Right Atria Right atrial chamber dimension is normal. Aortic Valve There is trace aortic valve regurgitation. Aortic valve is not well visualized. Pulmonic Valve Pulmonary valve is not well visualized. Mitral Valve There is trace mitral valve regurgitation. The mitral valve has thickened leaflets. Tricuspid Valve The tricuspid valve is structurally and functionally normal by two-dimensional, color flow Doppler and Doppler interrogation. Pericardium/Pleural Pericardium is normal in appearance with no evidence for significant pericardial effusion. Left Ventricular Outflow Tract Name Value Normal LVOT 2D LVOT Diameter 2.1 cm LVOT Doppler LVOT Peak Gradient 6 mmHg LVOT Mean Gradient 3 mmHg LVOT VTI 27 cm LVOT VTI/AV VTI Ratio 0.8 LVOT Stroke Volume 89 ml LVOT CO 6.0 l/min LVOT CI 2.8 l/min/m2 Mitral Valve Name Value Normal MV Doppler MV Decel [place] 423 cm/s2 MV PHT 77 ms MV Area (PHT) 2.9 cm2 4.0-5.0 MV Diastolic Function
[2020-09-07] MEDS: oxyCODONE HCL (*CRX) 5 MG TAB IR PO ×4 (00:12→21:21)
[2020-09-07] MEDS: chlordiazePOXIDE (*CRX) 25 MG CAPSULE PO ×2 (03:34→08:49)
[2020-09-07] MEDS: FOLIC ACID 1 MG TABLET PO (08:49)
[2020-09-07] MEDS: ATORVASTATIN 40 MG TABLET 80 MG PO (08:49)
[2020-09-07] MEDS: CLOPIDOGREL BISULFATE 75 MG TABLET PO (08:49)
[2020-09-07] MEDS: PANTOPRAZOLE 40 MG TABLET PO (08:49)
[2020-09-07] MEDS: ASPIRIN 81 MG ENTERIC TABLET PO (08:49)
[2020-09-07] MEDS: THIAMINE HCL 100 MG TABLET PO (08:49)
[2020-09-07] MEDS: oxyCODONE/ACETAMINOPHEN (*CRX) 5-325 MG TABLET 1 TABLET PO ×3 (08:50→21:20)
--- NOTE | 2020-09-07 09:33 | PM.CNCAR ---
Assessment and Plan Assessment and plan (1) Emphysema lung: Code(s): J43.9 - Emphysema, unspecified Status: Chronic (2) CHF (congestive heart failure): Code(s): I50.9 - Heart failure, unspecified Status: Chronic Assessment and Plan: BNP borderline pt does not appear fluid overloaded Will obtain ECHO to evaluate LV function and r/o structural heart disease. (3) Anxiety: Code(s): F41.9 - Anxiety disorder, unspecified Status: Chronic (4) Acute renal failure: Qualifiers: Acute renal failure type: unspecified Qualified Code(s): N17.9 - Acute kidney failure, unspecified Code(s): N17.9 - Acute kidney failure, unspecified Status: Acute Assessment and Plan: Cr 2.1 today pt not aware about CRI cont gentle hydration If no improvement consider nephrology evaluation (5) CAD (coronary artery disease): Code(s): I25.10 - Atherosclerotic heart disease of [place] coronary artery without angina pectoris Status: Acute Assessment and Plan: Pt with hx of CAD now asymptomatic CE negative no acute EKG changes will try to obtain records from [facility] and [facility] ECHO to evaluate LV function cont medical management for now (6) Alcoholism: Code(s): F10.20 - Alcohol dependence, uncomplicated Status: Chronic (7) Tobacco abuse: Code(s): Z72.0 - Tobacco use Status: Acute (8) Noncompliance: Code(s): Z91.19 - Patient's noncompliance with other medical treatment and regimen Status: Acute Assessment and Plan: Thank you for consult. Donte bowling. History of Present Illness History of Present Illness Consult date/time: 09/07/20 Mr. Ro is a 49 y/o WM with PMH of CAD s/p CABG, s/p PCI, COPD, emphysema, fatty liver, pancreatitis, carpal tunnel syndrome, arthritis who presented to [facility] yesterday due to weakness. Pt was was found to be initially hypotensive. This has resolved after hydration. His Cr was found to be elevated (2.4). Pt denies CP, SOB or palpitations. Pt states that one week ago he was fishing [place] and then he developed burning sensation in chest. He was taken initially to [facility] and then transferred to [facility] in [place], [place]. He states that he was there for 2 days and had stress test on Mon which was abnormal. Since he did not like this hospital decided to leave AMA. Since dc he was feeling OK however two days before current admission developed weakness. He was supposed to see senior bi architect at [facility] - Dr. Reyes - today. Regarding previous cardiac history pt states that he had CABG in [place] in 2016. Since then had 4 stents placed. Last time about 1-2 years ago at [facility] in [place], [place]. He used to follow there with Dr. Zhang, however had to quit since they stopped to accept his insurance, pt is not aware about kidney dysfunction. Pt was seen and examined, chart was reviewed, case d/w pt's nurse, Reason For Visit: ACUTE RENAL FAILURE, CHEST PAIN, HYPOTENSION Review of Systems Review of Systems: All systems reviewed & are unremarkable except as noted in HPI and below Constitutional: Constitutional: Reports as per HPI Eyes: Eyes: Reports as per HPI ENT: Reports system reviewed and no additional complaints, except as documented and Reports as per HPI Cardiovascular: Cardiovascular: Reports as per HPI Respiratory: Respiratory: Reports as per HPI Gastrointestinal: Gastrointestinal: Reports as per HPI Genitourinary: Genitourinary: Reports as per HPI Musculoskeletal: Musculoskeletal: Reports as per HPI [facility] Past Medical History Medical History (Updated 09/07/20 @ 09:54 by Burke Robbins MD) Alcoholism Anxiety Arthritis BMI 31.0-31.9,adult Bone spur CAD (coronary artery disease) Carpal tunnel syndrome CHF (congestive heart failure) Chronic bilateral low back pain Chronic bronchitis Chronic pain s
[2020-09-07] MEDS: LORazepam INJ (*CRX) 2 MG/ML VIAL IV PUSH ×2 (13:58→21:25)
--- NOTE | 2020-09-07 17:02 | PM.CNNEP ---
Assessment and Plan Assessment and plan (1) Acute renal failure: Qualifiers: Acute renal failure type: unspecified Qualified Code(s): N17.9 - Acute kidney failure, unspecified Code(s): N17.9 - Acute kidney failure, unspecified Status: Acute Assessment and Plan: Elder has acute kidney injury. Just 5 days ago his creatinine was normal. He has had several hospitalizations at different places that may or may not have some impact on his kidney function. It does not look like he received any contrast that I could find in the records. He was taking Lasix and he diuresed quite a bit over 2 weeks and so could have some pre renal issues. He also was taking Advil at the same time which can cause a high creatinine especially in the pre renal state. There is a question of whether he has congestive heart failure. Echocardiogram has been ordered. If his LV is bad than this could cause pre renal picture as well. The could have spontaneous atheroembolic disease because of his severe vascular disease. He did have a low blood pressure in the emergency room as well so could have ATN or a prerenal picture from this. Because he has heavy alcohol use, rhabdomyolysis is always a possibility. He could have obstruction. We will see what his repeat renal ultrasound shows. Other diseases such as interstitial nephritis or glomerulonephritis are possible but it seems like this is a somewhat rapid rise in his creatinine to this level in only 5 days. At this point I am going to check a renal ultrasound, urine electrolytes and eosinophils, serology, and immunofixation as well. We will also check a CPK. Because his chest x-ray looks okay, I am going to give him just a little bit of IV fluid. (2) Acute hypotension: Code(s): I95.9 - Hypotension, unspecified Status: Acute Assessment and Plan: Blood pressure was low in the ER. It looks like he received some IV fluids in the emergency room. His blood pressure is okay now. (3) Chest pain due to CAD: Code(s): I25.119 - Atherosclerotic heart disease of [place] coronary artery with unspecified angina pectoris Status: Acute Assessment and Plan: The patient has significant coronary disease. Cardiology is going to see the patient. (4) Fat necrosis: Code(s): M79.89 - Other specified soft tissue disorders Status: Acute Assessment and Plan: He had resection of this from his back. (5) History of tobacco abuse: Code(s): Z87.891 - Personal history of nicotine dependence Status: Acute Assessment and Plan: He continues to smoke 1 pack per day. He says he is trying to quit. (6) Alcoholism: Code(s): F10.20 - Alcohol dependence, uncomplicated Status: Chronic Assessment and Plan: The patient drinks heavily. He is getting thiamin. (7) Emphysema lung: Code(s): J43.9 - Emphysema, unspecified Status: Chronic Assessment and Plan: He gets inhalers for this. (8) Hyperlipidemia: Code(s): E78.5 - Hyperlipidemia, unspecified Status: Chronic Assessment and Plan: He is on atorvastatin. (9) Chronic pain syndrome: Code(s): G89.4 - Chronic pain syndrome Status: Chronic Assessment and Plan: He takes Advil and narcotics for this at home. History of Present Illness Reason for Consult Consult date: 09/07/20 Chief Complaint Chief complaint: ACUTE RENAL FAILURE, CHEST PAIN, HYPOTENSION History of Present Illness Narrative: Elder is a very pleasant 49-year-old gentleman who has multiple medical problems including chronic alcohol abuse disorder, coronary disease status post bypass and several stents, hypertension, sleep apnea, chronic back pain, GERD, reversible airways disease, continued smoking, and hyperlipidemia. Patient has had a busy few months. Five weeks ago the patient was admitted to an outside hospital because of double pneumonia.
--- NOTE | 2020-09-07 18:21 | PM.IMPN ---
Progress Note: A&P Assessment and Plan (1) Noncompliance: Code(s): Z91.19 - Patient's noncompliance with other medical treatment and regimen Status: Acute (2) Emphysema lung: Code(s): J43.9 - Emphysema, unspecified Status: Chronic (3) CHF (congestive heart failure): Code(s): I50.9 - Heart failure, unspecified Status: Chronic (4) Hyperlipidemia: Code(s): E78.5 - Hyperlipidemia, unspecified Status: Chronic (5) Chronic pain syndrome: Code(s): G89.4 - Chronic pain syndrome Status: Chronic (6) Anxiety: Code(s): F41.9 - Anxiety disorder, unspecified Status: Chronic (7) Acute renal failure: Qualifiers: Acute renal failure type: unspecified Qualified Code(s): N17.9 - Acute kidney failure, unspecified Code(s): N17.9 - Acute kidney failure, unspecified Status: Acute (8) Chest pain due to CAD: Code(s): I25.119 - Atherosclerotic heart disease of [place] coronary artery with unspecified angina pectoris Status: Acute (9) Acute hypotension: Code(s): I95.9 - Hypotension, unspecified Status: Acute (10) Tobacco abuse: Code(s): Z72.0 - Tobacco use Status: Acute (11) Alcoholism: Code(s): F10.20 - Alcohol dependence, uncomplicated Status: Chronic Additional Plan 09/06/20 Cardiology has been consulted. His troponins are negative x3. EKG is within normal limits. According the patient he stated that he felt a stress test at [facility] and that he was supposed to get a cardiac cath however he signed out AMA before getting a cardiac catheterization. I did order another echo. I could not find a recent 1 so I ordered another 1. Further recommendation per Cardiology. It looks like the patient is on a daily aspirin. With 1 CABG in 7 stents. His pain has subsided. The patient stated he has been having this pain on and off for 1 month. A V/Q scan which was negative for PE. The patient is on Plavix due to his history of coronary stents. I am going to hold his Lasix and any nephrotoxic medications. Heart failure. Avoid hold his Lasix and his ibuprofen for today. Hold lisinopril for today as well. Recheck labs in the a.m.. Nephrology has been consulted and will get a renal ultrasound. Will continue with CIWA scores and will do p.r.n. Librium with folic acid and thiamin. I have discussed the importance of smoking cessation for approximately 5 minutes. The patient stated that he was tested for sleep apnea and that he is supposed to pick up worker his machine next month. Continue with atorvastatin. Continue with his home medications if blood pressure allows. Continue CIWA scores and p.r.n. Librium. I did order an echo for the patient. I am going to hold his Lasix due to the acute kidney injury. I ordered another echo. I am holding his lisinopril as well. He does not appear to be on any beta-jim 09/07/20 Patient seen by Nephrology and workup is in process. Patient also seen by Cardiology medical management for his coronary artery disease and ongoing angina is recommended at this time. Creatinine remains elevated and places patient at risk for cardiac catheterization at this time. Patient is high risk for withdrawal from alcohol. He states the longest he has gone without drinking is 2 days when he starts to have symptoms of withdrawal. Continue current care with CIWA Librium IV Ativan p.r.n. Additionally, patient states that he left AMA from another hospital because he was not given adequate pain management for his chronic back pain. Patient takes 10/325 Percocet q.6 hours p.r.n. for pain in the outpatient setting. He is advised that this is what he will get here. I have additionally added coverage with tramadol q.6 hours p.r.n. for breakthrough pain. Subjective Date/time seen: 09/07/20 18:21 Patient complaining of back pain requesting more frequent narcotic dosing. He states he was recent
[2020-09-07] MEDS: SODIUM CHLORIDE 0.9% IV 1,000 ML 75 ML IV CONT (18:24)
[2020-09-07 18:26] LABS: Creatine Kinase 91 U/L (55-170)
[2020-09-07 18:33] LABS: Erythrocyte Sedimentation Rate 89 mm/hr (0-20)
[2020-09-07 18:35] LABS: Complement C3 102 mg/dL (88-165)
[2020-09-07] MEDS: THIAMINE HCL INJ 100 MG, FOLIC ACID INJ 1 MG, MULTIVITAMINS-12 INJ VIAL 1 5 ML, MULTIVI... 125 MG IV CONT (21:20)
[2020-09-07] MEDS: chlordiazePOXIDE (*CRX) 25 MG CAPSULE 50 MG PO (21:20)
[2020-09-07 22:01] LABS: Creatinine Urine 133.3 mg/dL; Total Protein Urine Random 9 mg/dL; Ur Ttl Prot Creatinine Ratio 0.07 mg/mg (0-0.20)
[2020-09-07 22:06] LABS: Sodium Urine Random 154 meq/L
[2020-09-07 22:20] LABS: Eosinophil Urine Rare % (None Seen)
[2020-09-08] VITALS (11 sets, daily range): BP systolic 140–156; BP diastolic 56–91; PULSE 64–73; RESP 22; TEMP 35.8–36.8; O2SAT 97–98
[2020-09-08] MEDS: chlordiazePOXIDE (*CRX) 25 MG CAPSULE 50 MG PO ×4 (00:52→12:52)
[2020-09-08 01:19] LABS: Glucose Point of Care 143 mg/dl (65-105)
[2020-09-08] MEDS: LORazepam INJ (*CRX) 2 MG/ML VIAL IV PUSH ×3 (02:01→12:52)
[2020-09-08] MEDS: oxyCODONE HCL (*CRX) 5 MG TAB IR PO ×2 (04:13→11:18)
[2020-09-08] MEDS: oxyCODONE/ACETAMINOPHEN (*CRX) 5-325 MG TABLET 1 TABLET PO ×2 (04:14→11:19)
[2020-09-08 05:25] LABS: Albumin Level 3.6 g/dL (3.5-5.1); Anion Gap 3 mmol/L (8-16); Blood Urea Nitrogen 16 mg/dL (9-20); Calcium 8.7 mg/dL (8.4-10.2); Carbon Dioxide 28 mmol/L (22-30); Chloride 104 mmol/L (98-107); Estimated CRCL calculation 128 ml/min; Estimated Glomerular Filt Rate > 60; Glucose 122 mg/dL (75-110); Potassium 4.1 mmol/L (3.4-5.0); Sodium 135 mmol/L (137-145)
[2020-09-08 08:32] LABS: Glucose Point of Care 112 mg/dl (65-105)
[2020-09-08] MEDS: THIAMINE HCL 100 MG TABLET PO (08:32)
[2020-09-08] MEDS: CLOPIDOGREL BISULFATE 75 MG TABLET PO (08:32)
[2020-09-08] MEDS: FOLIC ACID 1 MG TABLET PO (08:32)
[2020-09-08] MEDS: PANTOPRAZOLE 40 MG TABLET PO (08:32)
[2020-09-08] MEDS: ATORVASTATIN 40 MG TABLET 80 MG PO (08:33)
[2020-09-08] MEDS: ASPIRIN 81 MG ENTERIC TABLET PO (08:33)
[2020-09-08] MEDS: METOPROLOL SUCCINATE EXT REL 12.5 MG TABCR PO (08:33)
[2020-09-08] MEDS: traMADol HCL (*CRX) 50 MG TABLET PO (08:43)
--- NOTE | 2020-09-08 11:01 | PM.PNNEP ---
Progress Note: A&P Assessment and Plan (1) Acute renal failure: Qualifiers: Acute renal failure type: unspecified Qualified Code(s): N17.9 - Acute kidney failure, unspecified Code(s): N17.9 - Acute kidney failure, unspecified Status: Acute Assessment and Plan: Elder has acute kidney injury. Just 5 days ago his creatinine was normal. Renal ultrasound is pending. Non pre renal but he was on diuretics. Urine eosinophils are ?rare ? His serum creatinine has returned to normal. Most likely this was pre renal azotemia due to dehydration and low blood pressure. (2) Acute hypotension: Code(s): I95.9 - Hypotension, unspecified Status: Acute Assessment and Plan: Blood pressure was low in the ER. Resolved. (3) Chest pain due to CAD: Code(s): I25.119 - Atherosclerotic heart disease of [place] coronary artery with unspecified angina pectoris Status: Acute Assessment and Plan: The patient has significant coronary disease. Cardiology is on the case. (4) Fat necrosis: Code(s): M79.89 - Other specified soft tissue disorders Status: Acute Assessment and Plan: He had resection of this from his back. (5) History of tobacco abuse: Code(s): Z87.891 - Personal history of nicotine dependence Status: Acute Assessment and Plan: He continues to smoke 1 pack per day. He says he is trying to quit. May be he can use this hospital stay as a spring board if he can keep from smoking while here. (6) Alcoholism: Code(s): F10.20 - Alcohol dependence, uncomplicated Status: Chronic Assessment and Plan: The patient drinks heavily. He is getting thiamin. No confusion or agitation. (7) Emphysema lung: Code(s): J43.9 - Emphysema, unspecified Status: Chronic Assessment and Plan: He gets inhalers for this. (8) Hyperlipidemia: Code(s): E78.5 - Hyperlipidemia, unspecified Status: Chronic Assessment and Plan: He is on atorvastatin. (9) Chronic pain syndrome: Code(s): G89.4 - Chronic pain syndrome Status: Chronic Assessment and Plan: He takes Advil and narcotics for this at home. Subjective Date/time seen: 09/08/20 11:01 Interval history: Elder is feeling better today. No chest pain. Occasional aches. No shortness of breath. Eating okay. Review of Systems Cardiovascular: Cardiovascular: Reports no additional cardiovascular complaints Respiratory: Respiratory: Reports no additional respiratory complaints Gastrointestinal: Gastrointestinal: Reports no additional gastrointestinal complaints Genitourinary: Genitourinary: Reports no additional male genitourinary complaints Exam Narrative: Exam Narrative: WDWN in NAD skin no rash head ncat lungs clear cor reg no rub abd BS+ nontender and soft ext no edema. Objective Data Vital Signs Vital Signs: Vital Signs - 24 hr 09/07/20 11:37 09/07/20 12:00 09/07/20 14:00 Temperature 36.4 C Pulse Rate 82 83 Pulse Rate [Monitor] Respiratory Rate 22 H Blood Pressure 110/51 L Pulse Oximetry 95 99 09/07/20 16:00 09/07/20 18:00 09/07/20 19:21 Temperature 36.1 C L 36.2 C L Pulse Rate 82 87 63 Pulse Rate [Monitor] Respiratory Rate 22 H 22 H Blood Pressure 136/73 147/89 H Pulse Oximetry 99 99 09/07/20 20:00 09/07/20 21:23 09/07/20 22:00 Temperature Pulse Rate 69 69 Pulse Rate [Monitor] 63 Respiratory Rate 22 H Blood Pressure Pulse Oximetry 99 09/08/20 00:00 09/08/20 00:50 09/08/20 02:00 Temperature 36.8 C Pulse Rate 73 67 Pulse Rate [Monitor] 73 Respiratory Rate 22 H Blood Pressure 140/56 L 140/56 L Pulse Oximetry 97 09/08/20 04:00 09/08/20 04:40 09/08/20 05:37 Temperature 36.4 C L Pulse Rate 72 68 Pulse Rate [Monitor] 72 Respiratory Rate 22 H Blood Pressure 149/82 H 149/82 H Pulse Oximetry 98
--- NOTE | 2020-09-08 11:03 | PM.PNCARD ---
Progress Note: A&P Assessment and Plan (1) Emphysema lung: Code(s): J43.9 - Emphysema, unspecified Status: Chronic (2) CHF (congestive heart failure): Code(s): I50.9 - Heart failure, unspecified Status: Chronic Assessment and Plan: BNP borderline pt does not appear fluid overloaded (3) Anxiety: Code(s): F41.9 - Anxiety disorder, unspecified Status: Chronic (4) Acute renal failure: Qualifiers: Acute renal failure type: unspecified Qualified Code(s): N17.9 - Acute kidney failure, unspecified Code(s): N17.9 - Acute kidney failure, unspecified Status: Acute Assessment and Plan: Cr 2.1 on admission but now 0.7 cont gentle hydration (5) CAD (coronary artery disease): Code(s): I25.10 - Atherosclerotic heart disease of [place] coronary artery without angina pectoris Status: Acute Assessment and Plan: Pt with hx of CAD now asymptomatic CE negative no acute EKG changes will try to obtain records from [facility] and [facility] to evaluate LV function cont medical management for now (6) Alcoholism: Code(s): F10.20 - Alcohol dependence, uncomplicated Status: Chronic (7) Tobacco abuse: Code(s): Z72.0 - Tobacco use Status: Acute (8) Noncompliance: Code(s): Z91.19 - Patient's noncompliance with other medical treatment and regimen Status: Acute Assessment and Plan: Thank you for consult. Donte bowling. Subjective Date/time seen: 09/08/20 11:03 Feels better today, he seems to have some tremors, but no chest pain no palpitation no dizziness Exam Const: General: alert and awake; No acute distress HENMT: Head: normal to inspection and atraumatic Ears: hearing grossly normal bilaterally Face and sinus: normal facial exam Eyes: General: appearance normal, both eyes and all related structures Pupils: Equal, round and reactive pupils present EOM: EOMs intact bilaterally Neck: Neck: normal visual inspection and no JVD Chest: Chest palpation & inspection: normal inspection of the chest Resp: Effort & Inspection: normal respiratory effort and no respiratory distress Auscultation: clear to auscultation bilaterally Cardio: Jugular venous distension: no JVD Rate: regular rate Heart sounds: S1 normal heart sound present, S2 normal heart sound present and no murmurs GI: Inspection: normal to inspection Auscultation: normal bowel sounds Skin: General skin exam: normal color Neuro: Cranial nerves: Yes Equal, round and reactive pupils present Extrem: General: normal to inspection and no clubbing, cyanosis or edema Objective Data Vital Signs Vital Signs: Vital Signs - 24 hr 09/07/20 11:37 09/07/20 12:00 09/07/20 14:00 Temperature 36.4 C Pulse Rate 82 83 Pulse Rate [Monitor] Respiratory Rate 22 H Blood Pressure 110/51 L Pulse Oximetry 95 99 09/07/20 16:00 09/07/20 18:00 09/07/20 19:21 Temperature 36.1 C L 36.2 C L Pulse Rate 82 87 63 Pulse Rate [Monitor] Respiratory Rate 22 H 22 H Blood Pressure 136/73 147/89 H Pulse Oximetry 99 99 09/07/20 20:00 09/07/20 21:23 09/07/20 22:00 Temperature Pulse Rate 69 69 Pulse Rate [Monitor] 63 Respiratory Rate 22 H Blood Pressure Pulse Oximetry 99 09/08/20 00:00 09/08/20 00:50 09/08/20 02:00 Temperature 36.8 C Pulse Rate 73 67 Pulse Rate [Monitor] 73 Respiratory Rate 22 H Blood Pressure 140/56 L 140/56 L Pulse Oximetry 97 09/08/20 04:00 09/08/20 04:40 09/08/20 05:37 Temperature 36.4 C L Pulse Rate 72 68 Pulse Rate [Monitor] 72 Respiratory Rate 22 H Blood Pressure 149/82 H 149/82 H Pulse Oximetry 98 09/08/20 08:00 09/08/20 08:37 09/08/20 10:00 Temperature 35.8 C L Pulse Rate 65 66 66 Pulse Rate [Monitor] Respiratory Rate 22 H Blood Pressure 156/88 H Pulse Oximetry 98 Intake/Output Intake/Output: Intake & Output 09/05/2008/19
--- NOTE | 2020-09-08 12:11 | PM.DS ---
DS: Admitting Diagnosis Admitting Diagnosis Admitting Diagnosis: (1) Chest pain due to CAD: Code(s): I25.119 - Atherosclerotic heart disease of [place] coronary artery with unspecified angina pectoris Status: Acute (2) Acute renal failure: Qualifiers: Acute renal failure type: unspecified Qualified Code(s): N17.9 - Acute kidney failure, unspecified Code(s): N17.9 - Acute kidney failure, unspecified Status: Acute (3) Alcoholism: Code(s): F10.20 - Alcohol dependence, uncomplicated Status: Chronic (4) History of tobacco abuse: Code(s): Z87.891 - Personal history of nicotine dependence Status: Acute (5) Daytime hypersomnia: Code(s): G47.10 - Hypersomnia, unspecified Status: Acute (6) Hyperlipidemia: Code(s): E78.5 - Hyperlipidemia, unspecified Status: Chronic (7) Chronic pain syndrome: Code(s): G89.4 - Chronic pain syndrome Status: Chronic (8) Anxiety: Code(s): F41.9 - Anxiety disorder, unspecified Status: Chronic (9) CHF (congestive heart failure): Code(s): I50.9 - Heart failure, unspecified Status: Chronic DS: Discharge Diagnosis Discharge Diagnosis (1) Emphysema lung: Code(s): J43.9 - Emphysema, unspecified Status: Chronic (2) CHF (congestive heart failure): Code(s): I50.9 - Heart failure, unspecified Status: Chronic (3) Hyperlipidemia: Code(s): E78.5 - Hyperlipidemia, unspecified Status: Chronic (4) Chronic pain syndrome: Code(s): G89.4 - Chronic pain syndrome Status: Chronic (5) Anxiety: Code(s): F41.9 - Anxiety disorder, unspecified Status: Chronic (6) Acute renal failure: Qualifiers: Acute renal failure type: unspecified Qualified Code(s): N17.9 - Acute kidney failure, unspecified Code(s): N17.9 - Acute kidney failure, unspecified Status: Acute (7) Chest pain due to CAD: Code(s): I25.119 - Atherosclerotic heart disease of [place] coronary artery with unspecified angina pectoris Status: Acute (8) Acute hypotension: Code(s): I95.9 - Hypotension, unspecified Status: Acute (9) Tobacco abuse: Code(s): Z72.0 - Tobacco use Status: Acute (10) BMI 31.0-31.9,adult: Code(s): Z68.31 - Body mass index [BMI] 31.0-31.9, adult Status: Acute (11) Alcoholism: Code(s): F10.20 - Alcohol dependence, uncomplicated Status: Chronic (12) CAD (coronary artery disease): Code(s): I25.10 - Atherosclerotic heart disease of [place] coronary artery without angina pectoris Status: Acute (13) Noncompliance: Code(s): Z91.19 - Patient's noncompliance with other medical treatment and regimen Status: Acute (14) Daytime hypersomnia: Code(s): G47.10 - Hypersomnia, unspecified Status: Acute (15) Voiding difficulty: Code(s): R39.198 - Other difficulties with micturition Status: Acute DS: Summary Hospital Course Reason for hospitalization: chest pain rule out ACS Hospital Course: 09/07/20 Cardiology has been consulted. His troponins are negative x3. EKG is within normal limits. According the patient he stated that he felt a stress test at [facility] and that he was supposed to get a cardiac cath however he signed out AMA before getting a cardiac catheterization. I did order another echo. I could not find a recent 1 so I ordered another 1. Further recommendation per Cardiology. It looks like the patient is on a daily aspirin. With 1 CABG in 7 stents. His pain has subsided. The patient stated he has been having this pain on and off for 1 month. A V/Q scan which was negative for PE. The patient is on Plavix due to his history of coronary stents. I am going to hold his Lasix and any nephrotoxic medications. Heart failure. Avoid hold his Lasix and his i
--- NOTE | 2020-09-08 12:16 | PC.NURSE ---
24 hour urine collected on patient was submitted at 1230, patient completed 19 hours of the test. Biomedical Engineer is aware and okay with the situation.
[2020-09-08 12:17] LABS: Glucose Point of Care 125 mg/dl (65-105)
[2020-09-12 13:21] LABS: Complement Total CH50 55 U/mL (31-60)
[2020-09-13 11:17] LABS: Albumin 55 %; Creat 24 Hr 0.65 g/24 h (0.50-2.15); Measured Kappa Chains <1.00 mg/dL (<2.00); Measured Lambda Chains <1.00 mg/dL (<2.00); Pro/Creat Ratio 101 mg/g creat (<=114)
[2020-09-13 13:02] LABS: Kappa\\Lambda Light Chains 0.82 (0.26-1.65); Lambda Light Chain 21.6 mg/L (5.7-26.3)
== END 2020-09-08 13:25 | disposition home or self-care (01) | DRG 198 ==
LOC: ANHED 17:00 → ANHIMU 23:55
PROVIDERS: Internal Medicine Nephrology; Admitting Provider Family Medicine; Emergency Provider Emergency Medicine; PCP Family Medicine; Visit Provider Hospitalist
DX: I25.10 Atherosclerotic heart disease of native coronary artery without angina pectoris (principal); N17.9 Acute kidney failure, unspecified; F10.20 Alcohol dependence, uncomplicated; I50.22 Chronic systolic (congestive) heart failure; R07.89 Other chest pain; I95.9 Hypotension, unspecified; E86.0 Dehydration; E78.5 Hyperlipidemia, unspecified; G89.4 Chronic pain syndrome; F41.9 Anxiety disorder, unspecified; G47.30 Sleep apnea, unspecified; R39.198 Other difficulties with micturition; M19.90 Unspecified osteoarthritis, unspecified site; J43.9 Emphysema, unspecified; M48.00 Spinal stenosis, site unspecified; F17.210 Nicotine dependence, cigarettes, uncomplicated; E66.9 Obesity, unspecified; Z68.31 Body mass index [BMI] 31.0-31.9, adult; Z95.5 Presence of coronary angioplasty implant and graft; Z95.1 Presence of aortocoronary bypass graft; Z79.82 Long term (current) use of aspirin; Z79.02 Long term (current) use of antithrombotics/antiplatelets; Z87.11 Personal history of peptic ulcer disease; Z90.49 Acquired absence of other specified parts of digestive tract; Z91.19 Patient's noncompliance with other medical treatment and regimen
CPT/HCPCS: 36415; 71045; 78580; 80053; 80069; 82550; 82570; 82948; 83880; 83883; 84156; 84300; 84484; 85025; 85380; 85610; 85652; 85730; 85999; 86038; 86160; 86162; 86334; 86335; 93005; 93306; 96361; 96365; 96366; 99285; A9270; A9540; J1265; J2060; J3411; J3475; J7030; J7040

== ENCOUNTER 2020-09-12 09:43 | Observation (INO) | payer OTHER, SELFPAY ==
[2020-09-12] VITALS (21 sets, daily range): BP systolic 75–121; BP diastolic 47–73; PULSE 71–90; RESP 13–24; TEMP 36.2–36.9; O2SAT 87–99
--- NOTE | ~2020-09-12 | CT_ITS ---
EXAMINATION: CT abdomen pelvis wo con DATE: 09/12/2020 12:49 INDICATION: Retroperitoneal hematoma. TECHNIQUE: Computed tomography (CT) of the abdomen and pelvis was performed without intravenous contr ast. Automated exposure control and iterative reconstruction technique were employed. The dose-length product was 794.92 mGy-cm. COMPARISON: Chest CT 08/16/2020 FINDINGS: The visualized portions of the lung bases demonstrate mild atelectasis. There are airspace and groundglass opacities in left lower lobe and lingula, consistent with pneumonia. No pleural effus ion. Cardiomediastinal is noted. There are coronary artery calcifications. No pericardial effusion. M edian sternotomy wires are noted. There is diffuse hepatic steatosis. There is contrast in the gallbl adder, which is normal in size. The spleen, pancreas, adrenal glands, and kidneys are normal. There i s a small right inguinal hernia containing fat. There are no dilated loops of bowel. The appendix is not visualized. There are no pathologically enlarged lymph nodes. There is no free intraperitoneal fl uid. There is a small subcutaneous hematoma superficial to right common femoral artery. There are arun ign bone islands in proximal left femur. There are chronic bilateral L5 pars defects. There is mild t horacolumbar spondylosis. IMPRESSION: 1. Small subcutaneous hematoma superficial to right common femoral artery. 2. Pneumonia involving left lower lobe and lingula. Reviewed, dictated and finalized at location B.
--- NOTE | ~2020-09-12 | XR_ITS ---
EXAMINATION: XR chest 1V portable DATE: 09/12/2020 11:42 INDICATION: Hypotension. TECHNIQUE: A single frontal view of the chest was obtained. COMPARISON: Chest single view 09/06/2020, chest CT 08/16/2020 FINDINGS: The lung volumes are small. There is no pneumonia, pleural effusion, or pneumothorax. Cardi omegaly is noted. Median sternotomy wires and mediastinal surgical clips are seen, likely from prior coronary artery bypass grafting. IMPRESSION: 1. Cardiomegaly. Reviewed, dictated and finalized at location B. IMPRESSION: 1. Cardiomegaly.
--- NOTE | ~2020-09-12 | US_ITS ---
US arterial duplex LE RT 09/13/2020 17:31 Indication: Right groin pain/hematoma. Evaluate for pseudoaneurysm. Procedure: High-resolution ultrasound of the right groin vessels and soft tissues including Doppler a nalysis Comparison: No prior studies for comparison. Findings: There is normal Doppler signal and color flow in the right common femoral, superficial femo ral and profundus femoral arteries. There is normal flow in the right common femoral and superficial femoral veins. No evidence for pseudoaneurysm. There is heterogeneous soft tissue in the right groin and medial to the vessels, consistent with hematoma. Impression: 1: No evidence for pseudoaneurysm. 2: Ill-defined heterogeneous soft tissue medial to the vessels in the right groin, likely hematoma. Reviewed, dictated and finalized at location A. Impression: 1: No evidence for pseudoaneurysm. 2: Ill-defined heterogeneous soft tissue medial to the vessels in the right layne in, likely hematoma.
--- NOTE | 2020-09-12 09:50 | ECG_ITS ---
Measurements Intervals [place] Rate: 87 P: 30 WA: 156 QRS: 54 QRSD: 88 T: 50 QT: 359 QTc: 433 Interpretive Statements SINUS RHYTHM EARLY PRECORDIAL R/S TRANSITION MINIMAL Q WAVES- INFERIOR LEADS BORDERLINE T WAVE ABNORMALITY- ANTERIOR LEADS BORDERLINE ECG Electronically Signed On 09-12-2020 11:03:42 CDT by Good Reyes D.O.
[2020-09-12 10:30] LABS: Basophils Absolute Auto 0.1 K/mm3 (0.0-0.1); Basophils Percent Auto 0.4 % (0.2-1.2); Eosinophils Absolute Auto 0.3 K/mm3 (0-0.3); Eosinophils Percent Auto 2.1 % (0-4.4); Hematocrit 34.9 % (42.0-52.0); Hemoglobin 11.7 g/dL (14.0-18.0); Immature Granulocyte Absolute 0.08 K/mm3 (0.00-0.031); Immature Granulocyte Percent A 0.6 % (0-0.5); Lymphocytes Absolute Auto 0.79 K/mm3 (0.9-3.2); Mean Corpuscular HGB Conc 33.5 g/dl (32-36); Mean Corpuscular Hemoglobin 34.7 pg (26-34); Mean Corpuscular Volume 103.6 fl (80-100); Mean Platelet Volume 9.9 fl (7.4-10.4); Monocytes Absolute Auto 1.2 K/mm3 (0.1-0.6); Monocytes Percent Auto 8.8 % (2.6-8.5); Neutrophils Absolute Auto 10.8 K/mm3 (1.3-6.7); Neutrophils Percent Auto 82.1 % (45.5-73.1); Platelet Count Result 259 k/mm3 (150-375); Red Blood Count 3.37 M/mm3 (4.6-6.20); Red Cell Distribution Width 13.6 % (11.5-14.5); White Blood Count 13.1 K/mm3 (4.5-10.0)
[2020-09-12 10:57] LABS: Add Urine Microscopic? YES; Appearance Urine Cloudy (Clear); Bacteria Urine Trace /hpf; Bilirubin Urine Negative (Negative); Blood Urine Negative (Negative); Color Urine Amber (Yellow); Glucose Urine UA Negative (Negative); Ketones Urine Negative (Negative); Leukocyte Esterase Ur Negative LEU/UL (Negative); Mucus Urine Rare /lpf; Nitrate Urine Negative (Negative); Protein Urine 1+ mg/dL (Negative); Specific Grav Ur 1.027 (1.001-1.035); Squamous Epithelial Cell Urine Moderate /hpf (Few); Urobilinogen Urine Negative mg/dL (<2.0)
--- NOTE | 2020-09-12 11:00 | ED.GENADULT ---
HPI - General Adult General Chief complaint: Weakness Stated complaint: SOB Time Seen by Provider: 09/12/20 10:36 Source: patient and family Mode of arrival: wheelchair Limitations: no limitations History of Present Illness HPI narrative: Patient is a 49-year-old male with a history of alcohol abuse, coronary artery disease, 1 vessel CABG in 2016, and several stents, most recent stent placed yesterday 09/11 at [facility] by Dr. Zapien, who presents for evaluation of weakness. Patient states he has felt generally weak and disoriented over the past 24 hours since discharge from the facility. He reports pain and bruising at the site of the catheterization in the right groin. He denies any numbness or weakness in his lower extremities. He reports feeling dizzy and lightheaded especially with standing. States he has been compliant with his medications. He denies any current chest pain. He does report shortness of breath with ambulation. He denies cough or fever. No rhinorrhea or congestion. Related Data Home Medications Medication Instructions Recorded Confirmed albuterol sulfate 90 mcg/actuation 1 inh INHALATION Q4-6H PRN 05/01/20 09/06/20 breath activated powder inhaler,sensor aspirin 81 mg tablet,delayed 81 mg PO DAILY 05/01/20 09/06/20 release atorvastatin 40 mg tablet 80 mg PO DAILY 05/01/20 09/06/20 nitroglycerin 0.4 mg sublingual 0.4 mg SUBLINGUAL Q5M PRN 05/01/20 09/06/20 tablet clopidogrel 75 mg tablet 75 mg PO DAILY 07/27/20 09/06/20 lisinopril 2.5 mg tablet 2.5 mg PO DAILY 07/27/20 09/06/20 oxycodone-acetaminophen 10 mg-325 1 tablet PO Q6H PRN 07/27/20 09/06/20 mg tablet pantoprazole 40 mg PO DAILY 08/03/20 09/06/20 Breztri Aerosphere 2 inh INHALATION DAILY 09/06/20 09/07/20 isosorbide mononitrate 30 mg PO 09/12/20 Allergies Allergy/AdvReac Type Severity Reaction Status Date / Time No Known Allergies Allergy Verified 09/12/20 09:51 Review of Systems Review of Systems: Narrative: CONSTITUTIONAL: Denies fever, chills, or sweats. EYES: Denies visual changes, redness, or discharge. ENT: Denies rhinorrhea, congestion, sore throat, or otalgia. CARDIOVASCULAR: Denies current chest pain, palpitations, or edema. RESPIRATORY: Denies cough, reports dyspnea GASTROINTESTINAL: Denies abdominal pain, nausea, vomiting, or diarrhea. GENITOURINARY: Denies dysuria or hematuria. SKIN: Denies rash or itching. MUSCULOSKELETAL: Denies back pain, joint pain, or myalgia. NEUROLOGIC: Denies headache, numbness,reports feeling diffusely weak PMFSH Past Medical History Medical History Alcoholism Anxiety Arthritis BMI 31.0-31.9,adult Bone spur CAD (coronary artery disease) Carpal tunnel syndrome CHF (congestive heart failure) Chronic bilateral low back pain Chronic bronchitis Chronic pain syndrome Chronic systolic heart failure Congenital meatal stenosis COPD (chronic obstructive pulmonary disease) Coronary artery disease involving autologous artery coronary bypass graft Degenerative disc disease Drug dependence Emphysema lung Epididymitis Helicobacter pylori infection History of heart attack Hyperlipidemia Peptic ulcer disease Pericardial effusion Pinched nerve Pneumonia Shoulder joint pain Spinal stenosis Surgery, elective Right buttocks 7 cm intra muscular mass extraction due to extensive fat necrosis with dystrophic calcification fibrosis Tobacco abuse Surgical History Surgical History History of appendectomy History of bilateral carpal tunnel release History of intravascular stent placement 7 stents Hx of CABG One vessel S/P cubital tunnel release Family History Family History Father Heart disease Hypertension Sibling Cancer Hypertension Heart disease Colon cancer Grandparent Acute myocardial infarctio
[2020-09-12 11:12] LABS: Alanine Aminotransferase 21 U/L (4-50); Alkaline Phosphatase 87 U/L (38-126); Aspartate Amino Transferase 36 U/L (17-59); Bilirubin,Total 0.4 mg/dL (0.2-1.3); Blood Urea Nitrogen 17 mg/dL (9-20); Calcium 9.5 mg/dL (8.4-10.2); Carbon Dioxide 25 mmol/L (22-30); Estimated CRCL calculation 55 ml/min; Estimated Glomerular Filt Rate 43; Glucose 107 mg/dL (75-110)
[2020-09-12 11:15] LABS: Anion Gap 11 mmol/L (8-16); Chloride 102 mmol/L (98-107); Potassium 4.1 mmol/L (3.4-5.0); Sodium 138 mmol/L (137-145)
[2020-09-12] MEDS: ONDANSETRON INJ 4 MG/2 ML VIAL IV PUSH ×2 (11:22→23:28)
[2020-09-12] MEDS: SODIUM CHLORIDE 0.9% IV 1,000 ML 999 ML IV CONT ×2 (11:22→12:52)
[2020-09-12 11:31] LABS: Alveolar/Arterial O2 Gradient 37.4 mmHg; Carboxyhemoglobin 1.5 % THb (0-2.0); Fractional Inspired Oxygen 21 %; Methemoglobin ABG 0.2 %THb (0-1.5); Oxygen Content ABG 14.3 %vol (16.0-22.0); Oxyhemoglobin 84.6 % THb (90.0-100.0); PO2 ABG 53.7 mmHg (80.0-100.0); PO2 FiO2 Ratio Arterial Blood 2.56 %; Reduced Hemoglobin 13.7 %THb (0-5.0); pH ABG 7.359 (7.350-7.450)
[2020-09-12 11:34] LABS: Device ROOM AIR; Modified Allen's Test Pass; Oxygen Saturation ABG 86.3 % (95.0-100.0); Site Drawn LEFT RADIAL
[2020-09-12 12:00] LABS: Lactic Acid Reflex 1.1 mmol/L (0.7-2.1)
[2020-09-12 12:23] LABS: INR 0.9; Prothrombin Time 13.2 Seconds (11.1-14.7)
[2020-09-12 12:34] LABS: NT Pro B Type Natriuretic Pept 389 pg/mL (5-100); Troponin I 0.069 ng/mL (0.000-0.034)
--- NOTE | 2020-09-12 15:22 | PM.CNCAR ---
Assessment and Plan Assessment and plan (1) Acute hypotension: Code(s): I95.9 - Hypotension, unspecified Status: Acute Assessment and Plan: likely is due to blood loss, or due to septic shock agree with hydration, he had echocardiogram recently showed normal left ventricular systolic function agree with aggressive hydration especially with his creatinine been elevated with some intravascular depletion (2) Septic shock: Code(s): A41.9 - Sepsis, unspecified organism; R65.21 - Severe sepsis with septic shock Status: Acute Assessment and Plan: with possible pneumonia, agree with aggressive IV hydration and antibiotics. Blood pressure seems to be holding better now. (3) Pneumonia: Qualifiers: Laterality: bilateral Lung location: lower lobe of lung Pneumonia type: due to unspecified organism Qualified Code(s): J18.9 - Pneumonia, unspecified organism Code(s): J18.9 - Pneumonia, unspecified organism Status: Acute (4) Acute kidney injury: Code(s): N17.9 - Acute kidney failure, unspecified Status: Acute Assessment and Plan: Agree with hydration, will follow up input and outputs closely, and follow up creatinine level closely (5) Chest pain due to CAD: Code(s): I25.119 - Atherosclerotic heart disease of [place] coronary artery with unspecified angina pectoris Status: Acute Assessment and Plan: Recent PCI to OM at [facility] with moderate-size hematoma, no recurrence of chest pain (6) Groin hematoma: Code(s): S30.1XXA - Contusion of abdominal wall, initial encounter Status: Acute Assessment and Plan: He is stable now, no active bleed, hematoma is tender but seems to be stable, will get ultrasound to look for pseudoaneurysm, and follow-up H&H, I talked to Dr. Betancourt who did the procedure he stated that the diagnostic angiogram was done at that time had multiple sticks and he had small hematoma at the end of the procedure there History of Present Illness History of Present Illness Consult date/time: 09/12/20 15:22 CHIEF COMPLAINT IS DIZZINESS, SHORTNESS OF BREATH 49 years old gentleman with history of coronary disease status post coronary bypass surgery with single-vessel bypass, history of recent PCI to obtuse marginal at [facility], came the hospital care because of shortness of breath and dizziness. Apparently he was here last week with the shortness of breath and the chest pain at that time was sided to have him scheduled for outpatient cardiac catheterization, he apparently was scheduled to have cardiac catheterization done at [facility] with Dr. Granados, and had intervention to the by Dr. Betancourt. Was discharged home yesterday, according to Dr. Betancourt the patient had a right groin hematoma due to multiple sticks when he had his cardiac catheterization. Came to the hospital here with weakness shortness breath and dizziness noted to have significant hypotension. No fever, as low pressure was as low as 74, improved after was given IV fluid, so far he received more than 2 L of fluid is blood pressure now is 88/60 he feels a lot better. according to him there is no fever, however chest x-ray showed possible infiltrate. He had his a COVID vaccines x2, and no recent COVID exposure. Upon arrival to examine his blood pressure is 88/49 heart rate is 66 he is awake and alert and afebrile Reason For Visit: septic shock,pneumonia Review of Systems Constitutional: Constitutional: Reports fatigue and Reports lethargy Cardiovascular: Cardiovascular: Reports as per HPI, Denies chest pain and Reports syncope Respiratory: Respiratory: Reports as per HPI [facility] Past Medical History Medical History Alcoholism Anxiety Arthritis BMI 31.0-31.9,adult Bone spur CAD (coronary artery disease) Carpal tunnel syndrome CHF (congestive heart failure) Payroll Human Resources Assistant
[2020-09-12] MEDS: SODIUM CHLORIDE 0.9% IV 1,000 ML 125 ML IV CONT ×2 (16:48→23:35)
--- NOTE | 2020-09-12 17:16 | PM.IMHP ---
H&P: HPI History of Present Illness Date/Time: 09/12/20 17:16 this is a 49-year-old male patient who was just admitted to our hospital on 09/06/2020 and discharge 09/08/2020. His troponins and EKG were found to be normal at that time. The patient had been scheduled for a cardiac catheterization at [facility] due to an abnormal stress test. After the patient was discharged from [facility] he went back to [facility] for a catheterization with a stent. he had arecent PCI to obtuse Marginal at [facility] and has a hematoma to the right femoral area due to multiple sticks. The patient was discharged from our hospital yesterday. The patient came to [facility] today because of feeling dizzy and lightheaded specially when standing up. He stated he has been compliant with his medications. The patient told me that the last time he drank alcohol is 3 days ago. The patient had been on Librium last time that he was here and he is a heavy drinker. No chest pain. Patient reports some short of breath with ambulation. No fever chills. The patient was swabbed for COVID-19. The patient was thought to be septic with pneumonia today and was started on azithromycin Rocephin. The patient's blood pressure was low and he was given 2 liters of iv fluiuds. His blood pressure is now 100/50. His white count is 13.1. His H&H 11.6 and 34.9. The patient has a large purple hematoma to the right inner thigh. His creatinine is 1.7 today. Is troponin is 0.069. BNP 389. Dr. singleton has been consulted. The patient was placed in IMU.Admitted to observation status on 09/12/2020. Chief Complaint: Dizziness Review of Systems Review of Systems: All systems reviewed & are unremarkable except as noted in HPI and below Constitutional: Constitutional: Reports as per HPI and Reports no additional constitutional complaints Eyes: Eyes: Reports as per HPI and Reports no additional eye complaints ENT: Reports system reviewed and no additional complaints, except as documented and Reports Normal hearing present Cardiovascular: Cardiovascular: Reports no additional cardiovascular complaints Respiratory: Respiratory: Reports no additional respiratory complaints and Reports no additional respiratory complaints Gastrointestinal: Gastrointestinal: Reports as per HPI and Reports no additional gastrointestinal complaints Musculoskeletal: Musculoskeletal: Reports no additional musculoskeletal complaints Integumentary/Breasts: Skin/Breast: Reports system reviewed and no additional complaints, except as docu and Reports as per HPI Neurologic: Reports system reviewed and no additional complaints, except as documented, Reports as per HPI and Reports Normal hearing present Psychiatric: Psychiatric: Reports no additional psychiatric complaints and Reports as per HPI Endocrine: Endocrine: Reports no additional endocrine complaints Hematologic/Lymphatic: Hematologic/Lymphatic: Reports no additional hematologic/lymphatic complaints Allergic/Immunologic: Allergic/Immunologic: Reports no additional allergic/immunologic complaints [facility] Past Medical History Medical History (Updated 09/12/20 @ 17:45 by Lilliana Gutierrez NP) Alcoholism Anxiety Arthritis BMI 31.0-31.9,adult Bone spur CAD (coronary artery disease) Carpal tunnel syndrome CHF (congestive heart failure) Chronic bilateral low back pain Chronic bronchitis Chronic pain syndrome Chronic systolic heart failure Congenital meatal stenosis COPD (chronic obstructive pulmonary disease) Coronary artery disease involving autologous artery coronary bypass graft Degenerative disc disease Drug dependence Emphysema lung Epididymitis Helicobacter pylori infection History of heart attack Hyperlipidemia Peptic ulcer disease Pericardial effusion Pinched nerve Pneumonia Shoulder joint pain Spinal stenosis Surgery, elective Right buttocks 7 cm intra muscular mass extraction due
--- NOTE | 2020-09-12 17:19 | ADMGEN ---
This patient, Elder Ro Jr., was admitted to IMU Room 213-01 at 1624. Patient/family oriented to hospital policies and general routines including ID bracelet, bed and alarms, visiting hours, pain management, procedures, bathroom and other care routines, personal items, smoking policy, room service/diet, and visiting hours. Information on how to activate the Rapid Response Team has been discussed. Patient/Family are encouraged to report perceived risks to care and to ask questions if they do not understand what they are told or what they should do.
[2020-09-12 18:39] LABS: Troponin I 0.042 ng/mL (0.000-0.034)
[2020-09-12] MEDS: FOLIC ACID 1 MG TABLET PO (18:45)
[2020-09-12] MEDS: THIAMINE HCL 100 MG TABLET PO (18:45)
[2020-09-12 20:01] LABS: Hematocrit 33.4 % (42.0-52.0); Hemoglobin 10.9 g/dL (14.0-18.0)
[2020-09-12 20:38] LABS: Troponin I 0.044 ng/mL (0.000-0.034)
[2020-09-12] MEDS: ACETAMINOPHEN 325 MG TABLET 650 MG PO (21:12)
[2020-09-12] MEDS: chlordiazePOXIDE (*CRX) 25 MG CAPSULE PO (21:18)
[2020-09-12] MEDS: ALBUTEROL SULFATE (*SP) AEROSOL 1 PUFF 2 PUFF INHALATION (23:00)
[2020-09-12] MEDS: LORazepam INJ (*CRX) 2 MG/ML VIAL 1 MG IV PUSH (23:28)
[2020-09-12 23:55] LABS: Hematocrit 30.8 % (42.0-52.0)
[2020-09-13] VITALS (17 sets, daily range): BP systolic 105–143; BP diastolic 57–81; PULSE 71–92; RESP 16–24; TEMP 36.2–37; O2SAT 91–100
[2020-09-13] MEDS: LORazepam INJ (*CRX) 2 MG/ML VIAL 1 MG IV PUSH ×3 (04:23→23:00)
[2020-09-13 04:49] LABS: Basophils Percent Auto 0.3 % (0.2-1.2); Eosinophils Absolute Auto 0.4 K/mm3 (0-0.3); Eosinophils Percent Auto 4.1 % (0-4.4); Hematocrit 33.2 % (42.0-52.0); Hemoglobin 10.8 g/dL (14.0-18.0); Immature Granulocyte Absolute 0.09 K/mm3 (0.00-0.031); Immature Granulocyte Percent A 0.9 % (0-0.5); Lymphocytes Absolute Auto 0.92 K/mm3 (0.9-3.2); Lymphocytes Percent Auto 9.4 % (18.3-44.2); Mean Corpuscular HGB Conc 32.5 g/dl (32-36); Mean Corpuscular Hemoglobin 33.9 pg (26-34); Mean Corpuscular Volume 104.1 fl (80-100); Mean Platelet Volume 10.1 fl (7.4-10.4); Monocytes Absolute Auto 1.1 K/mm3 (0.1-0.6); Monocytes Percent Auto 10.8 % (2.6-8.5); Neutrophils Absolute Auto 7.3 K/mm3 (1.3-6.7); Neutrophils Percent Auto 74.5 % (45.5-73.1); Platelet Count Result 246 k/mm3 (150-375); Red Blood Count 3.19 M/mm3 (4.6-6.20); Red Cell Distribution Width 13.5 % (11.5-14.5); White Blood Count 9.8 K/mm3 (4.5-10.0)
[2020-09-13 05:05] LABS: Alanine Aminotransferase 20 U/L (4-50); Albumin Level 3.6 g/dL (3.5-5.1); Alkaline Phosphatase 80 U/L (38-126); Anion Gap 6 mmol/L (8-16); Aspartate Amino Transferase 40 U/L (17-59); Bilirubin,Total 0.3 mg/dL (0.2-1.3); Blood Urea Nitrogen 12 mg/dL (9-20); Calcium 8.4 mg/dL (8.4-10.2); Carbon Dioxide 26 mmol/L (22-30); Chloride 108 mmol/L (98-107); Estimated CRCL calculation 128 ml/min; Estimated Glomerular Filt Rate > 60; Glucose 106 mg/dL (75-110); Magnesium 1.8 mg/dL (1.6-2.3); Sodium 140 mmol/L (137-145)
[2020-09-13] MEDS: HYDROmorphone HCL INJ (*CRX) 1 MG/ML SYR 2 MG IV PUSH (05:09)
[2020-09-13] MEDS: SODIUM CHLORIDE 0.9% IV 1,000 ML 125 ML IV CONT ×2 (06:26→15:01)
[2020-09-13] MEDS: THIAMINE HCL 100 MG TABLET PO (08:44)
[2020-09-13] MEDS: oxyCODONE/ACETAMINOPHEN (*CRX) 5-325 MG TABLET 1 TABLET PO (08:45)
[2020-09-13] MEDS: CLOPIDOGREL BISULFATE 75 MG TABLET PO (08:45)
[2020-09-13] MEDS: ATORVASTATIN 40 MG TABLET 80 MG PO (08:45)
[2020-09-13] MEDS: METOPROLOL TARTRATE 12.5 MG TABLET PO ×2 (08:45→21:07)
[2020-09-13] MEDS: ASPIRIN 81 MG ENTERIC TABLET PO (08:45)
[2020-09-13] MEDS: oxyCODONE HCL (*CRX) 5 MG TAB IR PO ×2 (08:46→21:14)
[2020-09-13] MEDS: FOLIC ACID 1 MG TABLET PO (08:47)
[2020-09-13] MEDS: PANTOPRAZOLE 40 MG TABLET PO (08:47)
--- NOTE | 2020-09-13 09:01 | PC.NURSE ---
I set the patients bed alarm before stepping out of the room. After setting the alarm, the patient stated You know I know how you do that and will turn it off if I need to go to the bathroom. When I have to go, I have to go fast sometimes. I informed the patient that he needs to call when he has to use the bathroom so that we can supervise him for safety reasons. He stated I know. I won't fall. And I unplug my pole and take it with me. I know how to do it. I restated that he needs to call to ensure he does not fall as he is withdrawing from chonic alcohol use. Patient stated, Ok in response.
--- NOTE | 2020-09-13 09:28 | PM.PNCARD ---
Progress Note: A&P Assessment and Plan (1) CAD (coronary artery disease): Code(s): I25.10 - Atherosclerotic heart disease of [place] coronary artery without angina pectoris Status: Acute Assessment and Plan: 49 y/o male with h/o HTN, tobacco and alcohol abuse, early onset CAD s/p CABG X1(POLLACK to LAD) in 2016 and s/p PCI to OM with drug eluting stent earlier this week who presented with fatigue and hypotension Hypotension appears to be in the setting of sepsis from pneumonia (probably aspiration pneumonia with extensive alcohol use) BP better. Normal EF on recent echo. If BP drops again will consider echo to rule out effusion or LV dysfunction but his BP remains stable now Continue dual antiplatelet therapy with ASA and Plavix. Continue high intensity statin (Atorvastatin 80 mg daily) Smoking cessation is critical (2) Acute hypotension: Code(s): I95.9 - Hypotension, unspecified Status: Acute Assessment and Plan: Resolved (3) Groin hematoma: Code(s): S30.1XXA - Contusion of abdominal wall, initial encounter Status: Acute Assessment and Plan: Hematoma is tender but seems to be stable will get ultrasound to look for pseudoaneurysm, and follow-up H&H (4) Pneumonia: Qualifiers: Laterality: bilateral Lung location: lower lobe of lung Pneumonia type: due to unspecified organism Qualified Code(s): J18.9 - Pneumonia, unspecified organism Code(s): J18.9 - Pneumonia, unspecified organism Status: Acute Assessment and Plan: [facility] (5) Acute kidney injury: Code(s): N17.9 - Acute kidney failure, unspecified Status: Acute Assessment and Plan: Creatinine better with IV fluids, back to normal this am Subjective Date/time seen: 09/13/20 09:28 He feels better compared to yesterday. BP better. He is asking repetitively for his pain meds. Denies dyspnea but admits to dry cough Review of Systems Constitutional: Constitutional: Reports fatigue and Reports lethargy Cardiovascular: Cardiovascular: Reports as per HPI, Denies chest pain and Reports syncope Respiratory: Respiratory: Reports as per HPI Neurologic: Reports syncope Endocrine: Endocrine: Reports fatigue Exam Narrative: Exam Narrative: Awake alert oriented x3 not in acute distress Neck is supple no obvious JVD, no carotid bruit Chest: decreased air entry bilaterally with bilateral crackles noted Cardiovascular: Regular rate and rhythm, 2/6 systolic murmur noted left sternal border Abdomen: Soft nontender bowel sounds positive Extremities: No edema has good pulses distally bilaterally, moderate-size hematoma noted with some tenderness noted and discoloration, but no active bleed Objective Data Vital Signs Vital Signs: Vital Signs - 24 hr 09/12/20 09:47 09/12/20 10:00 09/12/20 10:46 Temperature 36.2 C L Pulse Rate 87 89 79 Pulse Rate [Bilateral Apical Monitor] Respiratory Rate 18 13 Blood Pressure 85/47 L 81/50 L Pulse Oximetry 97 92 09/12/20 11:01 09/12/20 11:16 09/12/20 11:47 Temperature Pulse Rate 84 78 83 Pulse Rate [Bilateral Apical Monitor] Respiratory Rate 15 15 14 Blood Pressure 82/64 L 90/54 L 75/55 L Pulse Oximetry 88 L 95 87 L 09/12/20 13:02 09/12/20 13:31 09/12/20 14:01 Temperature Pulse Rate 76 73 71 Pulse Rate [Bilateral Apical Monitor] Respiratory Rate 13 18 18 Blood Pressure 92/57 L 102/65 96/70 L Pulse Oximetry 96 98 96 09/12/20 15:00 09/12/20 15:08 09/12/20 15:16 Temperature Pulse Rate 72 73 78 Pulse Rate [Bilateral Apical Monitor] Respiratory Rate 14 16 17 Blood Pressure 112/73 105/70 121/69 Pulse Oximetry 95 99 95 09/12/20 16:00 09/12/20 16:25 09/12/20 18:00 Temperature 36.9 C Pulse Rate 84 88 84 Pulse Rate [Bilateral Apical Monitor] Respiratory Rate 20 Blood Pressure 100/49 L Pulse Oximetry 93 09/12/20 19:57 09/12/20 20:00 09/12/20
--- NOTE | 2020-09-13 09:52 | PCSTNOTE ---
Please refer to the Bedside Swallow Evaluation in the EMR. Please note, silent aspiration cannot be ruled out at bedside.
[2020-09-13 11:54] LABS: Hematocrit 30.8 % (42.0-52.0)
--- NOTE | 2020-09-13 12:30 | PM.IMPN ---
Progress Note: A&P Assessment and Plan (1) Septic shock: Code(s): A41.9 - Sepsis, unspecified organism; R65.21 - Severe sepsis with septic shock Status: Acute Assessment and Plan: Most likely related to aspiration pneumonia Treated with IV fluid IV antibiotics Pending swallow evaluation CT scan shows left lower lobe and lingular pneumonia . (2) Pneumonia: Qualifiers: Laterality: bilateral Lung location: lower lobe of lung Pneumonia type: due to unspecified organism Qualified Code(s): J18.9 - Pneumonia, unspecified organism Code(s): J18.9 - Pneumonia, unspecified organism Status: Acute Assessment and Plan: CT of the abdomen is showing a pneumonia involving left lower lobe and lingular. Continue IV antibiotic pending culture pending swallow evaluation most likely aspiration pneumonia. (3) Acute kidney injury: Code(s): N17.9 - Acute kidney failure, unspecified Status: Acute Assessment and Plan: Most likely related to sepsis and hypotension secondary to aspiration pneumonia continue antibiotic IV fluid (4) Suspected COVID-19 virus infection: Code(s): Z20.822 - Contact with and (suspected) exposure to COVID-19 Status: Acute Assessment and Plan: The patient was placed in droplet isolation. (5) Groin hematoma: Code(s): S30.1XXA - Contusion of abdominal wall, initial encounter Status: Acute Assessment and Plan: Continue to monitor site and H&H every 6 hours. Cardiology recommendation appreciated continue dual antiplatelet (6) CHF (congestive heart failure): Code(s): I50.9 - Heart failure, unspecified Status: Chronic Assessment and Plan: Most likely diastolic avoid fluid overload (7) Anxiety: Code(s): F41.9 - Anxiety disorder, unspecified Status: Chronic Assessment and Plan: Continue current treatment (8) Alcoholism: Code(s): F10.20 - Alcohol dependence, uncomplicated Status: Chronic Assessment and Plan: Continue to monitor CIWA score. Folic acid, thiamin and scheduled Librium (9) Tobacco abuse: Code(s): Z72.0 - Tobacco use Status: Acute Assessment and Plan: Counseling Subjective Date/time seen: 09/13/20 12:30 Interval history: Patient seen and examined Patient was recently discharged from the hospital after cardiac catheterization with stent placement presented to the hospital with shortness of breath generalized weakness groin hematoma patient was found to have aspiration pneumonia hypotension and sepsis admitted for further evaluation treatment Patient feels weak Patient denies fever headache chest pain I am seeing the patient for sepsis Exam Narrative: Exam Narrative: Alert Chest positive crackles Abdomen nontender nondistended CVS S1 + S2 Right groin bruises and hematoma Lower extremity edema Objective Data Vital Signs Vital Signs: Vital Signs - 24 hr 09/12/20 13:02 09/12/20 13:31 09/12/20 14:01 Temperature Pulse Rate 76 73 71 Pulse Rate [Bilateral Apical Monitor] Respiratory Rate 13 18 18 Blood Pressure 92/57 L 102/65 96/70 L Pulse Oximetry 96 98 96 09/12/20 15:00 09/12/20 15:08 09/12/20 15:16 Temperature Pulse Rate 72 73 78 Pulse Rate [Bilateral Apical Monitor] Respiratory Rate 14 16 17 Blood Pressure 112/73 105/70 121/69 Pulse Oximetry 95 99 95 09/12/20 16:00 09/12/20 16:25 09/12/20 18:00 Temperature 98.5 F Pulse Rate 84 88 84 Pulse Rate [Bilateral Apical Monitor] Respiratory Rate 20 Blood Pressure 100/49 L Pulse Oximetry 93 09/12/20 19:57 09/12/20 20:00 09/12/20 22:00 Temperature 97.8 F Pulse Rate 89 85 90 Pulse Rate [Bilateral Apical Monitor] 89 Respiratory Rate 18 Blood Pressure 108/62 Pulse Oximetry 95 09/12/20 22:57 09/12/20 22:58 09/12/20 23:07 Temperature 97.9 F Pulse Rate 80 77 Pulse Rate [Bilateral Apical Monitor] 79 Respirato
[2020-09-13] MEDS: MORPHINE SULFATE (*CRX) 2 MG/ML INJ IV PUSH (13:10)
[2020-09-13] MEDS: chlordiazePOXIDE (*CRX) 25 MG CAPSULE PO ×2 (13:11→21:07)
[2020-09-13] MEDS: MORPHINE SULFATE (*CRX) 2 MG/ML INJ (17:11)
[2020-09-13 17:40] LABS: SARS-CoV-2 RNA PCR Negative
[2020-09-14] VITALS (9 sets, daily range): BP systolic 152–155; BP diastolic 81–88; PULSE 63–98; RESP 20–22; TEMP 36.4–36.8; O2SAT 98
[2020-09-14] MEDS: SODIUM CHLORIDE 0.9% IV 1,000 ML 125 ML IV CONT (02:13)
[2020-09-14] MEDS: LORazepam INJ (*CRX) 2 MG/ML VIAL 1 MG IV PUSH (03:57)
[2020-09-14] MEDS: chlordiazePOXIDE (*CRX) 25 MG CAPSULE PO (05:46)
--- NOTE | 2020-09-14 08:03 | PM.PNCARD ---
Progress Note: A&P Assessment and Plan (1) CAD (coronary artery disease): Code(s): I25.10 - Atherosclerotic heart disease of [place] coronary artery without angina pectoris Status: Acute Assessment and Plan: 49 y/o male with h/o HTN, tobacco and alcohol abuse, early onset CAD s/p CABG X1(POLLACK to LAD) in 2016 and s/p PCI to OM with drug eluting stent earlier this week who presented with fatigue and hypotension Hypotension appears to be in the setting of sepsis from pneumonia (probably aspiration pneumonia with extensive alcohol use) BP better and actually elevated May resume lisinopril Normal EF on recent echo. Continue dual antiplatelet therapy with ASA and Plavix. Continue high intensity statin (Atorvastatin 80 mg daily) Smoking cessation is critical Pt is stable for discharge from cardiac standpoint Follow up in 1 week (2) Acute hypotension: Code(s): I95.9 - Hypotension, unspecified Status: Acute Assessment and Plan: Resolved (3) Groin hematoma: Code(s): S30.1XXA - Contusion of abdominal wall, initial encounter Status: Acute Assessment and Plan: Groin US with no pseudoaneurysm (4) Pneumonia: Qualifiers: Laterality: bilateral Lung location: lower lobe of lung Pneumonia type: due to unspecified organism Qualified Code(s): J18.9 - Pneumonia, unspecified organism Code(s): J18.9 - Pneumonia, unspecified organism Status: Acute Assessment and Plan: management per [facility] team (5) Acute kidney injury: Code(s): N17.9 - Acute kidney failure, unspecified Status: Acute Assessment and Plan: resolved. resume Lisinopril Subjective Date/time seen: 09/14/20 08:03 He feels better and would like to go home today if possible Review of Systems Constitutional: Constitutional: Reports fatigue and Reports lethargy Cardiovascular: Cardiovascular: Reports as per HPI, Denies chest pain and Reports syncope Respiratory: Respiratory: Reports as per HPI Neurologic: Reports syncope Endocrine: Endocrine: Reports fatigue Exam Narrative: Exam Narrative: Awake alert oriented x3 not in acute distress Neck is supple no obvious JVD, no carotid bruit Chest: decreased air entry bilaterally with bilateral crackles noted Cardiovascular: Regular rate and rhythm, 2/6 systolic murmur noted left sternal border Abdomen: Soft nontender bowel sounds positive Extremities: No edema has good pulses distally bilaterally, moderate-size hematoma noted with some tenderness noted and discoloration, but no active bleed Objective Data Vital Signs Vital Signs: Vital Signs - 24 hr 09/13/20 08:45 09/13/20 10:00 09/13/20 12:00 Temperature 36.8 C Pulse Rate 91 78 74 Pulse Rate [Bilateral Pedal (Dorsalis Pedis) Palpation] Respiratory Rate 22 H Blood Pressure 105/66 Pulse Oximetry 92 09/13/20 14:00 09/13/20 16:00 09/13/20 18:00 Temperature 36.9 C Pulse Rate 76 73 75 Pulse Rate [Bilateral Pedal (Dorsalis Pedis) Palpation] Respiratory Rate 24 H Blood Pressure 120/75 Pulse Oximetry 96 09/13/20 19:54 09/13/20 20:00 09/13/20 21:07 Temperature 36.5 C Pulse Rate 75 71 81 Pulse Rate [Bilateral Pedal (Dorsalis Pedis) Palpation] Respiratory Rate 20 Blood Pressure 127/57 L Pulse Oximetry 96 09/13/20 22:00 09/13/20 23:03 09/13/20 23:23 Temperature 36.4 C L Pulse Rate 81 79 Pulse Rate [Bilateral Pedal (Dorsalis Pedis) Palpation] 76 Respiratory Rate 20 Blood Pressure 143/81 H Pulse Oximetry 100 09/14/20 00:00 09/14/20 02:00 09/14/20 03:44 Temperature 36.4 C L Pulse Rate 70 66 72 Pulse Rate [Bilateral Pedal (Dorsalis Pedis) Palpation] Respiratory Rate 22 H Blood Pressure 152/81 H Pulse Oximetry 98 09/14/20 03:54 09/14/20 04:00 09/14/20 04:55 Temperature Pulse Rate 73 Pulse Rate [Bilateral Pedal (Dorsalis Pedis) Palpation] 70 Respiratory Rate
[2020-09-14] MEDS: METOPROLOL TARTRATE 12.5 MG TABLET PO (09:00)
[2020-09-14] MEDS: THIAMINE HCL 100 MG TABLET PO (09:00)
[2020-09-14] MEDS: oxyCODONE/ACETAMINOPHEN (*CRX) 5-325 MG TABLET 1 TABLET PO (09:00)
[2020-09-14] MEDS: CLOPIDOGREL BISULFATE 75 MG TABLET PO (09:00)
[2020-09-14] MEDS: ATORVASTATIN 40 MG TABLET 80 MG PO (09:00)
[2020-09-14] MEDS: FOLIC ACID 1 MG TABLET PO (09:00)
[2020-09-14] MEDS: ASPIRIN 81 MG ENTERIC TABLET PO (09:00)
[2020-09-14] MEDS: PANTOPRAZOLE 40 MG TABLET PO (09:00)
--- NOTE | 2020-09-14 11:24 | PM.DS ---
DS: Admitting Diagnosis Admitting Diagnosis Admitting Diagnosis: Groin hematoma hypotension DS: Discharge Diagnosis Discharge Diagnosis (1) Septic shock: Code(s): A41.9 - Sepsis, unspecified organism; R65.21 - Severe sepsis with septic shock Status: Acute Assessment and Plan: Most likely related to aspiration pneumonia Treated with IV fluid IV antibiotics CT scan shows left lower lobe and lingular pneumonia Patient will be discharged on oral antibiotics . (2) Pneumonia: Qualifiers: Laterality: bilateral Lung location: lower lobe of lung Pneumonia type: due to unspecified organism Qualified Code(s): J18.9 - Pneumonia, unspecified organism Code(s): J18.9 - Pneumonia, unspecified organism Status: Acute Assessment and Plan: CT of the abdomen is showing a pneumonia involving left lower lobe and lingular. Patient will be discharged on oral antibiotic (3) Acute kidney injury: Code(s): N17.9 - Acute kidney failure, unspecified Status: Acute Assessment and Plan: Most likely related to sepsis and hypotension secondary to aspiration pneumonia treated with IV fluids IV hydration repeat CMP in 1 week (4) Groin hematoma: Code(s): S30.1XXA - Contusion of abdominal wall, initial encounter Status: Acute Assessment and Plan: Continue dual antiplatelet repeat CBC in 1 week (5) CHF (congestive heart failure): Code(s): I50.9 - Heart failure, unspecified Status: Chronic Assessment and Plan: Most likely diastolic avoid fluid overload (6) Anxiety: Code(s): F41.9 - Anxiety disorder, unspecified Status: Chronic Assessment and Plan: Continue current treatment (7) Alcoholism: Code(s): F10.20 - Alcohol dependence, uncomplicated Status: Chronic Assessment and Plan: Continue to monitor CIWA score. Folic acid, thiamin and Librium (8) Tobacco abuse: Code(s): Z72.0 - Tobacco use Status: Acute Assessment and Plan: Counseling DS: Summary Hospital Course Hospital Course: Patient was admitted to the hospital with hypotension and cough was found to have pneumonia most likely aspiration pneumonia treated with IV antibiotic also patient has groin hematoma CT scan and Doppler was done negative for pseudoaneurysm cardiology recommendation appreciated continue dual antiplatelet resume home medication repeat CBC and CMP in 1 week Patient will be discharged on oral antibiotics Counseling regarding alcohol Time Spent with Patient Time attestation: Total time spent providing and/or coordinating discharge services: DS: Data Data Completed and Pending Labs on day of discharge: Labs from last 24 hours 09/13/20 09/12/20 11:28 15:18 Hgb 10.0 L Hct 30.8 L SARS-CoV-2 RNA (RT-PCR) Negative Preliminary micro results at discharge 09/12/20 11:42 Blood Culture - Preliminary Blood 09/12/20 11:42 Blood Culture - Preliminary Blood Discharge Plan Discharge Attending physician on discharge: Dre Stevens M.A. Consulting providers: Marvin Zapien Discharging Clinician: Dre Stevens M.A. Patient Disposition: Home, Self-Care Activity: other - see discharge instructions Diet: heart healthy and diabetic Patient Instructions: Antibiotic Form, How to Stop Smoking (GEN) Stand Alone Forms: General Discharge Information Follow-up/Referrals: Marvin Zapien MD [Physician] - Jamar Velez MD [Primary Care Provider] - Discharge Medications: New chlordiazepoxide HCl 25 mg Capsule 25 mg PO Q8H PRN (Reason: alcohol withdrawal) Qty: 10 RF: 0 thiamine HCl (vitamin B1) [Vitamin B-1] 100 mg Tablet 100 mg PO QAM Qty: 30 RF: 0 folic acid 1 mg Tablet 1 mg PO DAILY Qty: 30 RF: 0 amoxicillin-pot clavulanate [Augmentin] 875-125 mg tablet 1 tablet PO Q12H Qty: 14 RF: 0 Continued albuterol sulfate 90 mcg/actuation a
== END 2020-09-14 11:54 | disposition home or self-care (01) ==
LOC: ANHED 14:03 → ANHIMU 18:09
PROVIDERS: Nurse Practitioner; Admitting Provider Family Medicine; Emergency Provider Emergency Medicine; PCP Family Medicine; Visit Provider Internal Medicine
DX: J18.9 Pneumonia, unspecified organism (principal); N17.9 Acute kidney failure, unspecified; R65.21 Severe sepsis with septic shock; L76.32 Postprocedural hematoma of skin and subcutaneous tissue following other procedure; Y84.0 Cardiac catheterization as the cause of abnormal reaction of the patient, or of later complication, without mention of misadventure at the time of the procedure; R10.31 Right lower quadrant pain; I95.9 Hypotension, unspecified; R53.1 Weakness; F10.20 Alcohol dependence, uncomplicated; I50.22 Chronic systolic (congestive) heart failure; I25.119 Atherosclerotic heart disease of native coronary artery with unspecified angina pectoris; I25.810 Atherosclerosis of coronary artery bypass graft(s) without angina pectoris; G89.4 Chronic pain syndrome; J44.9 Chronic obstructive pulmonary disease, unspecified; I25.2 Old myocardial infarction; E78.5 Hyperlipidemia, unspecified; F41.9 Anxiety disorder, unspecified; Z20.822 Contact with and (suspected) exposure to COVID-19; Z95.5 Presence of coronary angioplasty implant and graft; Z95.1 Presence of aortocoronary bypass graft; Z79.51 Long term (current) use of inhaled steroids; Z79.82 Long term (current) use of aspirin; Z79.02 Long term (current) use of antithrombotics/antiplatelets; Z79.891 Long term (current) use of opiate analgesic; F17.210 Nicotine dependence, cigarettes, uncomplicated
CPT/HCPCS: 36415; 36600; 71045; 74176; 80053; 81001; 82375; 82805; 83050; 83605; 83735; 83880; 84484; 85014; 85018; 85025; 85610; 85730; 86850; 86900; 86901; 87040; 92610; 93005; 93926; 94640; 96361; 96365; 96367; 96374; 96375; 96376; 99291; A9270; C9803; G0378; G0379; J0456; J0696; J1170; J2060; J2270; J2405; J7030; U0003; U0005

== ENCOUNTER 2020-09-24 08:38 | Inpatient (IN) | payer OTHER, SELFPAY ==
[2020-09-24] VITALS (9 sets, daily range): BP systolic 129–145; BP diastolic 67–78; PULSE 68–92; RESP 16–20; TEMP 36.4–36.6; O2SAT 94–99; BMI 30.9
--- NOTE | ~2020-09-24 | XR_ITS ---
EXAMINATION: XR chest 1V portable DATE: 09/24/2020 18:12 INDICATION: Pneumonia. Shortness of breath. TECHNIQUE: frontal view of the chest was obtained. COMPARISON: Chest radiograph dated 09/12/2020 FINDINGS: And bronchial wall thickening with interval resolution of the tear patchy airspace opacities in the l eft lower lung zone consistent with improving pneumonia. No new airspace opacities, pulmonary edema, pleural effusion or pneumothorax. Cardiomegaly. Median sternotomy wires and mediastinal surgical clip s are seen, likely from prior coronary artery bypass grafting. Moderate spondylosis at the thoracolum bar junction mild spondylosis in the more cephalad thoracic spine. IMPRESSION: 1. Resolution of prior patchy airspace opacities. Residual bronchial wall thickening the left lower l obe consistent with improving pneumonia. 2. Cardiomegaly. Reviewed, dictated and finalized at location A. IMPRESSION: 1. Resolution of prior patchy airspace opacities. Residual bronchial wall thick ening the left lower lobe consistent with improving pneumonia. 2. Cardiomegaly.
--- NOTE | 2020-09-24 08:15 | ADMGEN ---
This patient, Elder Ro Noe, was admitted to [facility] Surg Room 317-01. Patient/family oriented to hospital policies and general routines including ID bracelet, bed and alarms, visiting hours, pain management, procedures, bathroom and other care routines, personal items, smoking policy, room service/diet, and visiting hours. Information on how to activate the Rapid Response Team has been discussed. Patient/Family are encouraged to report perceived risks to care and to ask questions if they do not understand what they are told or what they should do.
[2020-09-24] MEDS: lisinopriL 2.5 MG TABLET PO (13:31)
[2020-09-24] MEDS: CLOPIDOGREL BISULFATE 75 MG TABLET PO (13:31)
[2020-09-24] MEDS: ASPIRIN 81 MG ENTERIC TABLET PO (13:31)
[2020-09-24] MEDS: oxyCODONE HCL (*CRX) 5 MG TAB IR PO ×2 (13:45→20:26)
[2020-09-24] MEDS: METOPROLOL TARTRATE 12.5 MG TABLET PO (14:39)
--- NOTE | 2020-09-24 17:42 | PM.IMHP ---
H&P: HPI History of Present Illness Date/Time: 09/24/20 17:42 Chief Complaint: CHEST PAIN AND COUGH Narrative: 49-year-old male patient who was just admitted to our hospital with chest pain and cough. Pt had a cardiac stent placed 10 days ago in [facility]. Pt went back to the hospital with pneumonia. and was sent home with oral ABX. Pt still does not feel well. CXR and BC is ordered. PT states he went to [place] with Pneumonia a few months ago. Pt is a smoker. Review of Systems Review of Systems: All systems reviewed & are unremarkable except as noted in HPI and below PMFSH Past Medical History Medical History Alcoholism Anxiety Arthritis BMI 31.0-31.9,adult Bone spur CAD (coronary artery disease) Carpal tunnel syndrome CHF (congestive heart failure) Chronic bilateral low back pain Chronic bronchitis Chronic pain syndrome Chronic systolic heart failure Congenital meatal stenosis COPD (chronic obstructive pulmonary disease) Coronary artery disease involving autologous artery coronary bypass graft Degenerative disc disease Drug dependence Emphysema lung Epididymitis Helicobacter pylori infection History of heart attack Hyperlipidemia Peptic ulcer disease Pericardial effusion Pinched nerve Pneumonia Shoulder joint pain Spinal stenosis Surgery, elective Right buttocks 7 cm intra muscular mass extraction due to extensive fat necrosis with dystrophic calcification fibrosis Tobacco abuse Surgical History Surgical History History of appendectomy History of bilateral carpal tunnel release History of intravascular stent placement 8 stents Hx of CABG One vessel S/P cubital tunnel release Family History Family History Father Heart disease Hypertension Sibling Cancer Hypertension Heart disease Colon cancer Grandparent Acute myocardial infarction Other No problems noted. Other No problems noted. Mother Hypertension Heart disease Social History Social History Social History: The patient is disabled. He lives with his fiancee. He has 1 child. His fiancee is the durable power trademark attorney for healthcare and he desires to be a full code. The patient stated that he drinks a 5th of vodka daily. He stated that he used cocaine approximately 4 years ago and no longer uses cocaine. He is chronically on pain narcotic for his lower back pain. The patient continues to smoke at least a pack a cigarettes a day. Smoking packs per day: 1 Smoking cigarettes per day: 20.0 Years smoked: 35 Smoking pack-years: 35.00 Smoking status: Current every day smoker Tobacco type: cigarettes Second hand tobacco smoke exposure: Yes Alcohol intake: current Drinks per week: 119 Substance use: never Substance use type: crack/cocaine Additional occupation/education comments: Disabled Gender identity (if verbalized by the patient): Male Sexual Orientation (if Verbalized by the Patient): Straight or Heterosexual Spiritual care concerns: No Meds Home Medications and Allergies Home Medications Medication Instructions Recorded Confirmed Type aspirin 81 mg tablet,delayed 81 mg PO DAILY 05/01/20 09/24/20 History release atorvastatin 40 mg tablet 80 mg PO HS 05/01/20 09/24/20 History nitroglycerin 0.4 mg sublingual 0.4 mg SUBLINGUAL Q5M PRN 05/01/20 09/12/20 History tablet clopidogrel 75 mg tablet 75 mg PO DAILY 07/27/20 09/24/20 History lisinopril 2.5 mg tablet 2.5 mg PO DAILY 07/27/20 09/24/20 History oxycodone-acetaminophen 10 mg-325 1 tablet PO Q6H PRN 07/27/20 09/24/20 History mg tablet pantoprazole 40 mg PO BID 08/03/20 09/24/20 History Breztri Aerosphere 2 inh INHALATION BID 09/06/20 09/24/20 History metoprolol tartrate 12.5 mg PO DAILY 09/12
[2020-09-24] MEDS: ATORVASTATIN 40 MG TABLET 80 MG PO (20:20)
[2020-09-24] MEDS: PANTOPRAZOLE 40 MG TABLET PO (20:20)
[2020-09-25] VITALS (10 sets, daily range): BP systolic 133–144; BP diastolic 55–83; PULSE 50–88; RESP 18; TEMP 36.1–36.6; O2SAT 96–97
[2020-09-25 06:19] LABS: Hematocrit 36.4 % (42.0-52.0); Hemoglobin 12.2 g/dL (14.0-18.0); Mean Corpuscular HGB Conc 33.5 g/dl (32-36); Mean Corpuscular Hemoglobin 34.2 pg (26-34); Mean Platelet Volume 9.7 fl (7.4-10.4); Platelet Count Result 286 k/mm3 (150-375); Red Blood Count 3.57 M/mm3 (4.6-6.20); Red Cell Distribution Width 13.8 % (11.5-14.5); White Blood Count 8.6 K/mm3 (4.5-10.0)
[2020-09-25 06:34] LABS: Anion Gap 7 mmol/L (8-16); Blood Urea Nitrogen 6 mg/dL (9-20); Carbon Dioxide 29 mmol/L (22-30); Chloride 105 mmol/L (98-107); Estimated CRCL calculation 126 ml/min; Estimated Glomerular Filt Rate > 60; Glucose 104 mg/dL (75-110); Potassium 3.6 mmol/L (3.4-5.0); Sodium 141 mmol/L (137-145)
[2020-09-25] MEDS: oxyCODONE/ACETAMINOPHEN (*CRX) 5-325 MG TABLET 1 TABLET PO ×3 (08:18→20:51)
[2020-09-25] MEDS: oxyCODONE HCL (*CRX) 5 MG TAB IR PO ×3 (08:19→20:50)
[2020-09-25] MEDS: PANTOPRAZOLE 40 MG TABLET PO ×2 (09:25→20:53)
[2020-09-25] MEDS: lisinopriL 2.5 MG TABLET PO (09:25)
[2020-09-25] MEDS: CLOPIDOGREL BISULFATE 75 MG TABLET PO (09:25)
[2020-09-25] MEDS: ASPIRIN 81 MG ENTERIC TABLET PO (09:25)
[2020-09-25] MEDS: METOPROLOL TARTRATE 12.5 MG TABLET PO (09:25)
--- NOTE | 2020-09-25 13:22 | PM.IMPN ---
Progress Note: A&P Assessment and Plan (1) Pneumonia: Qualifiers: Laterality: bilateral Lung location: lower lobe of lung Pneumonia type: due to unspecified organism Qualified Code(s): J18.9 - Pneumonia, unspecified organism Code(s): J18.9 - Pneumonia, unspecified organism Status: Acute Assessment and Plan: CXR and blood culture unresolved Pneumonia Contnue to treat with Iv rocephin anmd zithromax DC zosyn and vancomycin await BC (2) CHF (congestive heart failure): Code(s): I50.9 - Heart failure, unspecified Status: Chronic Assessment and Plan: Continue home medications (3) Chronic pain syndrome: Code(s): G89.4 - Chronic pain syndrome Status: Chronic (4) CAD (coronary artery disease): Code(s): I25.10 - Atherosclerotic heart disease of [place] coronary artery without angina pectoris Status: Acute Assessment and Plan: SP heart cath trop negative so far (5) Smoker: Code(s): F17.200 - Nicotine dependence, unspecified, uncomplicated Status: Acute Assessment and Plan: Pt is refusing nicotine patch prefer pills Subjective Date/time seen: 09/25/20 13:22 Interval history: 49-year-old male patient who was just admitted to our hospital with chest pain and cough. Pt had a cardiac stent placed 10 days ago in [facility]. Pt went back to the hospital with pneumonia. and was sent home with oral ABX. Pt is here with pneumonia, states his L ear feels full, denies any drug allergies. Cough is much better pt feels more active Review of Systems Review of Systems: All systems reviewed & are unremarkable except as noted in HPI and below Exam Const: General: well developed Nutritional Appearance: well nourished HENMT: Head: normocephalic Eyes: General: appearance normal, both eyes and all related structures Pupils: Equal, round and reactive pupils present Neck: Neck: supple Chest: Chest palpation & inspection: normal inspection of the chest Resp: Effort & Inspection: normal respiratory effort Auscultation: clear to auscultation bilaterally Cardio: Jugular venous distension: no JVD Rhythm: regular rhythm Heart sounds: S1 normal heart sound present and S2 normal heart sound present GI: Inspection: normal to inspection Auscultation: normal bowel sounds Skin: General skin exam: normal color and dry skin Neuro: Cranial nerves: Yes CN's II-XII intact bilaterally and Yes Equal, round and reactive pupils present Cognition (Neuro): normal cognition Speech: normal speech Motor exam (neuro): 5/5 motor strength present throughout Extrem: General: normal to inspection Psych: Appearance: grossly normal Mental Status: mental status grossly normal Objective Data Vital Signs Vital Signs: Vital Signs - 24 hr 09/24/20 14:00 09/24/20 14:39 09/24/20 16:00 Temperature 36.6 C Pulse Rate 89 89 68 Respiratory Rate 16 Blood Pressure 129/78 Pulse Oximetry 94 09/24/20 20:00 09/24/20 22:00 09/24/20 22:05 Temperature 36.4 C Pulse Rate 79 68 78 Respiratory Rate 20 Blood Pressure 145/71 H Pulse Oximetry 99 97 09/25/20 00:00 09/25/20 04:00 09/25/20 05:49 Temperature 36.6 C Pulse Rate 88 72 65 Respiratory Rate 18 Blood Pressure 144/83 H Pulse Oximetry 96 09/25/20 08:00 09/25/20 09:25 09/25/20 12:00 Temperature Pulse Rate 78 78 63 Respiratory Rate 18 Blood Pressure Pulse Oximetry 96 Intake/Output Intake/Output: Intake & Output 09/22/20 09/23/20 09/24/20 09/25/20 23:59 23:59 23:59 23:59 Intake Total 1320 760 Output Total 1675 800 Balance -355 -40 Meds/Results Medications: Active Medications Generic Name Dose Route Start Last Admin Trade Name Prabhakarq PRN Reason Stop Dose Admin Aspirin 81 mg 09/24/20 09:00 09/25/20 09:25 Aspirin 81 Mg Enteric Tablet PO 81 mg DAILY CARMENZA Administration Atorvastatin Calcium 80 mg 09/24/20 21:00 09/24/20 20:20
--- NOTE | 2020-09-25 14:45 | PCCPR ---
called Elida, Director to give pt Cardiac rehab letha- pt qualifies for CR per stent 10 days ago in [place].
[2020-09-25] MEDS: ATORVASTATIN 40 MG TABLET 80 MG PO (20:53)
[2020-09-26] VITALS: PULSE 78
[2020-09-26 04:00] VITALS: PULSE 81
[2020-09-26] MEDS: oxyCODONE/ACETAMINOPHEN (*CRX) 5-325 MG TABLET 1 TABLET PO ×4 (05:09→22:58)
[2020-09-26] MEDS: oxyCODONE HCL (*CRX) 5 MG TAB IR PO ×4 (05:10→22:57)
[2020-09-26 06:00] VITALS: BP 139/73; PULSE 57; RESP 18; TEMP 35.9; O2SAT 98
[2020-09-26] MEDS: AZITHROMYCIN 250 MG TABLET 500 MG PO (08:57)
[2020-09-26] MEDS: METOPROLOL TARTRATE 12.5 MG TABLET PO (08:58)
[2020-09-26] MEDS: PANTOPRAZOLE 40 MG TABLET PO ×2 (08:58→20:21)
[2020-09-26] MEDS: lisinopriL 2.5 MG TABLET PO (08:58)
[2020-09-26] MEDS: ASPIRIN 81 MG ENTERIC TABLET PO (08:58)
[2020-09-26] MEDS: CLOPIDOGREL BISULFATE 75 MG TABLET PO (08:58)
[2020-09-26] MEDS: ALPRAZolam (*CRX) 0.25 MG TABLET PO ×2 (12:15→20:20)
[2020-09-26 14:00] VITALS: BP 141/80; PULSE 56; RESP 20; TEMP 36.6; O2SAT 96
--- NOTE | 2020-09-26 15:50 | PM.IMPN ---
Progress Note: A&P Assessment and Plan (1) Pneumonia: Qualifiers: Laterality: bilateral Lung location: lower lobe of lung Pneumonia type: due to unspecified organism Qualified Code(s): J18.9 - Pneumonia, unspecified organism Code(s): J18.9 - Pneumonia, unspecified organism Status: Acute Assessment and Plan: CXR and blood culture unresolved Pneumonia Contnue to treat with Iv rocephin anmd zithromax await BC (2) CHF (congestive heart failure): Code(s): I50.9 - Heart failure, unspecified Status: Chronic Assessment and Plan: Continue home medications (3) Chronic pain syndrome: Code(s): G89.4 - Chronic pain syndrome Status: Chronic (4) CAD (coronary artery disease): Code(s): I25.10 - Atherosclerotic heart disease of [place] coronary artery without angina pectoris Status: Acute Assessment and Plan: SP heart cath trop negative so far (5) Smoker: Code(s): F17.200 - Nicotine dependence, unspecified, uncomplicated Status: Acute Assessment and Plan: Pt is refusing nicotine patch prefer pills Subjective Date/time seen: 09/26/20 15:50 Interval history: 49-year-old male patient who was just admitted to our hospital with chest pain and cough. Pt had a cardiac stent placed [address] [facility]. Pt went back to the hospital with pneumonia. and was sent home with oral ABX. Pt is here with pneumonia. Alot of anxiety. Cough is much better, home tomorrow. Review of Systems Review of Systems: All systems reviewed & are unremarkable except as noted in HPI and below Exam Const: General: well developed Nutritional Appearance: well nourished HENMT: Head: normocephalic Eyes: General: appearance normal, both eyes and all related structures Pupils: Equal, round and reactive pupils present Neck: Neck: supple Chest: Chest palpation & inspection: normal inspection of the chest Resp: Effort & Inspection: normal respiratory effort Auscultation: clear to auscultation bilaterally Cardio: Jugular venous distension: no JVD Rhythm: regular rhythm Heart sounds: S1 normal heart sound present and S2 normal heart sound present GI: Inspection: normal to inspection Auscultation: normal bowel sounds Skin: General skin exam: normal color and dry skin Neuro: Cranial nerves: Yes CN's II-XII intact bilaterally and Yes Equal, round and reactive pupils present Cognition (Neuro): normal cognition Speech: normal speech Motor exam (neuro): 5/5 motor strength present throughout Extrem: General: normal to inspection Psych: Appearance: grossly normal Mental Status: mental status grossly normal Objective Data Vital Signs Vital Signs: Vital Signs - 24 hr 09/25/20 16:00 09/25/20 20:00 09/25/20 22:00 Temperature 36.1 C L Pulse Rate 62 52 L 50 L Respiratory Rate 18 Blood Pressure 143/55 H Pulse Oximetry 96 09/26/20 00:00 09/26/20 04:00 09/26/20 06:00 Temperature 35.9 C L Pulse Rate 78 81 57 L Respiratory Rate 18 Blood Pressure 139/73 Pulse Oximetry 98 09/26/20 14:00 Temperature 36.6 C Pulse Rate 56 L Respiratory Rate 20 Blood Pressure 141/80 H Pulse Oximetry 96 Intake/Output Intake/Output: Intake & Output 09/23/20 09/24/20 09/25/20 09/26/20 23:59 23:59 23:59 23:59 Intake Total 1320 2340 1100 Output Total 1675 1700 Balance -862 116 5493 Meds/Results Medications: Active Medications Generic Name Dose Route Start Last Admin Trade Name Freq PRN Reason Stop Dose Admin Alprazolam 0.25 mg 09/26/20 12:01 09/26/20 12:15 Alprazolam (*Crx) 0.25 Mg Tablet PO 0.25 mg TID PRN Administration Anxiety Aspirin 81 mg 09/24/20 09:00 09/26/20 08:58 Aspirin 81 Mg Enteric Tablet PO 81 mg DAILY CARMENZA Administration Atorvastatin Calcium 80 mg 09/24/20 21:00 09/25/20 20:53 Atorvastatin 40 Mg Tablet PO 80 mg HS CARMENZA Administration Azithromycin 500 mg 09/26/20
[2020-09-26 20:10] VITALS: BP 139/82; PULSE 58; RESP 16; TEMP 36.6; O2SAT 93
[2020-09-26] MEDS: ATORVASTATIN 40 MG TABLET 80 MG PO (20:20)
[2020-09-27 05:08] VITALS: BP 136/75; PULSE 66; RESP 20; TEMP 36.4; O2SAT 98
[2020-09-27] MEDS: oxyCODONE HCL (*CRX) 5 MG TAB IR PO ×2 (05:21→11:58)
[2020-09-27] MEDS: oxyCODONE/ACETAMINOPHEN (*CRX) 5-325 MG TABLET 1 TABLET PO ×2 (05:22→11:59)
[2020-09-27 06:19] LABS: Estimated CRCL calculation 112 ml/min; Estimated Glomerular Filt Rate > 60
[2020-09-27] MEDS: lisinopriL 2.5 MG TABLET PO (09:35)
[2020-09-27] MEDS: CLOPIDOGREL BISULFATE 75 MG TABLET PO (09:35)
[2020-09-27] MEDS: ASPIRIN 81 MG ENTERIC TABLET PO (09:35)
[2020-09-27] MEDS: AZITHROMYCIN 250 MG TABLET 500 MG PO (09:35)
[2020-09-27] MEDS: ALPRAZolam (*CRX) 0.25 MG TABLET PO (09:35)
[2020-09-27] MEDS: METOPROLOL TARTRATE 12.5 MG TABLET PO (09:35)
[2020-09-27] MEDS: PANTOPRAZOLE 40 MG TABLET PO (09:35)
--- NOTE | 2020-09-27 12:14 | PM.DS ---
DS: Admitting Diagnosis Admitting Diagnosis Admitting Diagnosis: chest pain and cough DS: Discharge Diagnosis Discharge Diagnosis (1) Pneumonia: Qualifiers: Laterality: bilateral Lung location: lower lobe of lung Pneumonia type: due to unspecified organism Qualified Code(s): J18.9 - Pneumonia, unspecified organism Code(s): J18.9 - Pneumonia, unspecified organism Status: Acute Assessment and Plan: CXR and blood culture completed unresolved Pneumonia Continue to treat with Iv rocephin and zithromax Bc negative Pt can continue with oral zithromax. (2) CHF (congestive heart failure): Code(s): I50.9 - Heart failure, unspecified Status: Chronic Assessment and Plan: Continue home medications (3) Chronic pain syndrome: Code(s): G89.4 - Chronic pain syndrome Status: Chronic (4) CAD (coronary artery disease): Code(s): I25.10 - Atherosclerotic heart disease of [place] coronary artery without angina pectoris Status: Acute Assessment and Plan: SP heart cath trop negative so far (5) Smoker: Code(s): F17.200 - Nicotine dependence, unspecified, uncomplicated Status: Acute Assessment and Plan: Pt is refusing nicotine patch prefer pills in hospital DS: Summary Hospital Course Reason for hospitalization: Chest pain and cough Hospital Course: 50-year-old male patient who was just admitted to our hospital with chest pain and cough. Pt had a cardiac stent placed 10 days ago in [facility]. Pt went back to the hospital with pneumonia. and was sent home with oral ABX. Pt still does not feel well. CXR and BC is ordered. PT states he went to [place] with Pneumonia a few months ago. Pt is a smoker. pt was treated with iv abx or 3 days in hospital was very eager to go home. dc on oral azithromycin. Time Spent with Patient Time attestation: Total time spent providing and/or coordinating discharge services:40 minutes on day of discharge Exam Const: General: well developed Nutritional Appearance: well nourished HENMT: Head: normocephalic Eyes: General: appearance normal, both eyes and all related structures Pupils: Equal, round and reactive pupils present Neck: Neck: supple Chest: Chest palpation & inspection: normal inspection of the chest Resp: Effort & Inspection: normal respiratory effort Auscultation: clear to auscultation bilaterally Cardio: Jugular venous distension: no JVD Rhythm: regular rhythm Heart sounds: S1 normal heart sound present and S2 normal heart sound present GI: Inspection: normal to inspection Auscultation: normal bowel sounds Skin: General skin exam: normal color and dry skin Neuro: Cranial nerves: Yes CN's II-XII intact bilaterally and Yes Equal, round and reactive pupils present Cognition (Neuro): normal cognition Speech: normal speech Motor exam (neuro): 5/5 motor strength present throughout Extrem: General: normal to inspection Psych: Appearance: grossly normal Mental Status: mental status grossly normal DS: Data Data Completed and Pending Labs on day of discharge: Labs from last 24 hours 09/27/20 05:42 Creatinine 0.80 Estim Creat Clear Calc 112 Estimated GFR > 60 Preliminary micro results at discharge 09/24/20 13:11 Blood Culture - Preliminary Blood 09/24/20 13:08 Blood Culture - Preliminary Blood Discharge Plan Discharge Attending physician on discharge: Flavia Garcia Discharging Clinician: Flavia Garcia Anticipated Discharge Date/Time: 09/27/20 12:12 Patient Disposition: Home, Self-Care Activity: as tolerated Diet: heart healthy Patient Instructions: Antibiotic Form, Heart Failure (DC) Stand Alone Forms: General Discharge Information Follow-up/Referrals: Jamar Velez MD [Primary Care Provider] - Discharge Medications: New azithromycin [Zithromax] 250 mg Tablet 250 mg PO DAILY Qty: 4 RF: 0 Cont
--- NOTE | 2020-09-27 13:13 | PC.NURSE ---
Pt is being discharged to home. Pt had IV removed and discharged paperwork reviewed. Both the pt and his S.O. both exhibited good understanding of discharge instructions. Pt ambulated to elevators, and out the front door with S.O.
== END 2020-09-27 13:15 | disposition home or self-care (01) | DRG 139 ==
PROVIDERS: Admitting Provider Family Medicine; PCP Family Medicine; Visit Provider Family Medicine
DX: J18.9 Pneumonia, unspecified organism (principal); I50.22 Chronic systolic (congestive) heart failure; I25.10 Atherosclerotic heart disease of native coronary artery without angina pectoris; F17.200 Nicotine dependence, unspecified, uncomplicated; G89.4 Chronic pain syndrome; Z95.820 Peripheral vascular angioplasty status with implants and grafts
CPT/HCPCS: 36415; 71045; 80048; 82565; 85027; 87040; 94762; A9270; J0696; J2543; J3370

== ENCOUNTER 2020-10-04 22:41 | Emergency (ER) | payer OTHER, SELFPAY ==
--- NOTE | ~2020-10-04 | XR_ITS ---
XR chest 2V DATE: 10/04/2020 23:04 INDICATION: Chest pain. Congestive heart failure, coronary disease, COPD. History of for myocardial i nfarctions. TECHNIQUE: PA and lateral views COMPARISON: 09/24/2020 portable AP chest FINDINGS: Sternotomy. Coronary artery calcifications and/or stents. Size is within normal range. No pulmonary infiltrate or consolidation, pleural effusion or pulmonary vascular congestion or pneumo thorax. 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 IMPRESSION: Status post sternotomy No active cardiopulmonary disease Reviewed, dictated and finalized at location A.
--- NOTE | ~2020-10-04 | CT_ITS ---
EXAMINATION: CTA chest PE protocol EXAM DATE: 10/05/2020 00:15 INDICATION: Chest pain elevated D-dimer. Surgery on back one week ago to remove mass TECHNIQUE: Spiral CTA of the chest (pulmonary arteries) was performed with 100 cc Omnipaque 350 intr avenous contrast injection. Images were acquired during the pulmonary arterial phase. Coronal maxi mum intensity projection 3D-reconstructions were created by the technologist on dedicated workstation . Axial, coronal and sagittal reformatted images were reviewed. The dose-length product (DLP) for t his examination was 607.11 mGy-cm. The exposure was tailored according to patient size (auto mA exp osure control), and iterative reconstruction (ASIR) was used as additional dose reduction technique. Comparison is made to prior examination from 08/16/2020. FINDINGS: Pulmonary arteries are well opacified and without intraluminal filling defects. No thora cic aortic dissection. Small amount of left lower lobe airspace disease has developed which could be pneumonia or atelectasis. There are no pleural or pericardial effusions. Tracheobronchial tree is patent. Mildly enlarged right hilar lymph node, could be reactive. There is no pneumothorax. Th ere is mild cardiomegaly. Mild emphysema. There are sternotomy wires, and cardiac/coronary surgical changes. Correlate with prior history. Upper abdomen is unremarkable. There is thoracic spondylosi s without osteoblastic or osteolytic lesions identified. IMPRESSION: 1. No pulmonary emboli. 2. Small amount of left basilar pneumonia or atelectasis, clinical correlation. 3. Mildly enlarged right hilar lymph node unchanged, probably reactive. 4. Mild cardiomegaly. 5. Mild emphysema. I discussed possibility of left basilar small amount of pneumonia with Dr. Pretty at 10/05/2020 7:37 a.m. CDT Reviewed, dictated and finalized at location G. IMPRESSION: 1. No pulmonary emboli. 2. Small amount of left basilar pneumonia or atelectasis, clinical correlation . 3. Mildly enlarged right hilar lymph node unchanged, probably reactive. 4. Mild cardiomegaly. 5. Mild emphysema. I discussed possibility of left basilar small amount of pneumonia with Dr. Denis aguirre at 10/05/2020 7:37 a.m. CDT
--- NOTE | 2020-10-04 22:42 | ECG_ITS ---
Measurements Intervals [place] Rate: 74 P: 50 DC: 167 QRS: 59 QRSD: 86 T: 64 QT: 388 QTc: 431 Interpretive Statements SINUS RHYTHM BORDERLINE T WAVE ABNORMALITY- ANTERIOR LEADS BORDERLINE ECG Electronically Signed On 10-05-2020 6:58:18 CDT by Good Reyes D.O.
[2020-10-04 22:48] VITALS: BP 115/72; PULSE 84; RESP 18; TEMP 36.7; O2SAT 95
[2020-10-04 23:10] LABS: Basophils Absolute Auto 0.1 K/mm3 (0.0-0.1); Eosinophils Absolute Auto 0.3 K/mm3 (0-0.3); Eosinophils Percent Auto 3.9 % (0-4.4); Hematocrit 38.8 % (42.0-52.0); Hemoglobin 12.7 g/dL (14.0-18.0); Immature Granulocyte Absolute 0.02 K/mm3 (0.00-0.031); Immature Granulocyte Percent A 0.3 % (0-0.5); Lymphocytes Absolute Auto 2.01 K/mm3 (0.9-3.2); Lymphocytes Percent Auto 29.9 % (18.3-44.2); Mean Corpuscular HGB Conc 32.7 g/dl (32-36); Mean Corpuscular Hemoglobin 33.5 pg (26-34); Mean Corpuscular Volume 102.4 fl (80-100); Mean Platelet Volume 9.7 fl (7.4-10.4); Monocytes Absolute Auto 0.7 K/mm3 (0.1-0.6); Monocytes Percent Auto 10.8 % (2.6-8.5); Neutrophils Absolute Auto 3.6 K/mm3 (1.3-6.7); Neutrophils Percent Auto 54.1 % (45.5-73.1); Platelet Count Result 210 k/mm3 (150-375); Red Blood Count 3.79 M/mm3 (4.6-6.20); Red Cell Distribution Width 13.8 % (11.5-14.5); White Blood Count 6.7 K/mm3 (4.5-10.0)
[2020-10-04 23:21] LABS: Anion Gap 11 mmol/L (8-16); Blood Urea Nitrogen 14 mg/dL (9-20); Calcium 9.1 mg/dL (8.4-10.2); Carbon Dioxide 24 mmol/L (22-30); Chloride 105 mmol/L (98-107); Estimated CRCL calculation 72 ml/min; Estimated Glomerular Filt Rate 59; Glucose 90 mg/dL (75-110); INR 0.9; Potassium 4.1 mmol/L (3.4-5.0); Prothrombin Time 12.9 Seconds (11.1-14.7); Sodium 140 mmol/L (137-145)
[2020-10-04 23:22] LABS: Partial Thromboplastin Time 28.1 SECONDS (22.3-36.8)
[2020-10-04 23:24] LABS: D Dimer 0.84 ug/mL (<0.48)
[2020-10-04 23:33] LABS: Troponin I < 0.012 ng/mL (0.000-0.034)
--- NOTE | 2020-10-04 23:44 | PC.NURSE ---
Pt sleeping soundly, snoring loudly at this time.
--- NOTE | 2020-10-04 23:47 | ED.GENADULT ---
HPI - General Adult General Chief complaint: Chest Pain Stated complaint: chest pain -seen at [facility] today Time Seen by Provider: 10/04/20 22:58 History of Present Illness HPI narrative: Patient 50-year-old gentleman who presents the emergency department with chief complaint of chest pain. Patient reports that he was recently in the hospital for chest discomfort and was diagnosed with pneumonia patient also reports that he has history of cardiac disease has had a bypass and also has stents that have been placed. The patient states that currently he does not have a test eng due to him trying to find a new test eng due to insurance issues. Patient states that the pain he is having today is a sharp-like pain and is like a stabbing sensation in the left side of his chest. The patient states he had no diaphoresis with this denies radiation of the pain. Related Data Home Medications Medication Instructions Recorded Confirmed aspirin 81 mg tablet,delayed 81 mg PO DAILY 05/01/20 09/24/20 release atorvastatin 40 mg tablet 80 mg PO HS 05/01/20 09/24/20 nitroglycerin 0.4 mg sublingual 0.4 mg SUBLINGUAL Q5M PRN 05/01/20 09/25/20 tablet clopidogrel 75 mg tablet 75 mg PO DAILY 07/27/20 09/24/20 lisinopril 2.5 mg tablet 2.5 mg PO DAILY 07/27/20 09/24/20 oxycodone-acetaminophen 10 mg-325 1 tablet PO Q6H PRN 07/27/20 09/24/20 mg tablet pantoprazole 40 mg PO BID 08/03/20 09/24/20 Breztri Aerosphere 2 inh INHALATION BID 09/06/20 09/24/20 metoprolol tartrate 12.5 mg PO DAILY 09/12/20 09/24/20 Allergies Allergy/AdvReac Type Severity Reaction Status Date / Time No Known Allergies Allergy Verified 09/24/20 08:53 Review of Systems Review of Systems: Narrative: A 10 system review of systems was completed on the patient and is negative except for what is stated in the HPI. Nursing and ancillary documentation was reviewed. [facility] Past Medical History Medical History Alcoholism Anxiety Arthritis BMI 31.0-31.9,adult Bone spur CAD (coronary artery disease) Carpal tunnel syndrome CHF (congestive heart failure) Chronic bilateral low back pain Chronic bronchitis Chronic pain syndrome Chronic systolic heart failure Congenital meatal stenosis COPD (chronic obstructive pulmonary disease) Coronary artery disease involving autologous artery coronary bypass graft Degenerative disc disease Drug dependence Emphysema lung Epididymitis Helicobacter pylori infection History of heart attack Hyperlipidemia Peptic ulcer disease Pericardial effusion Pinched nerve Pneumonia Shoulder joint pain Spinal stenosis Surgery, elective Right buttocks 7 cm intra muscular mass extraction due to extensive fat necrosis with dystrophic calcification fibrosis Tobacco abuse Surgical History Surgical History History of appendectomy History of bilateral carpal tunnel release History of intravascular stent placement 8 stents Hx of CABG One vessel S/P cubital tunnel release Family History Family History Father Heart disease Hypertension Sibling Cancer Hypertension Heart disease Colon cancer Grandparent Acute myocardial infarction Other No problems noted. Other No problems noted. Mother Hypertension Heart disease Social History Social History Social History: The patient is disabled. He lives with his figabrielae. He has 1 child. His figabrielae is the durable power compliance attorney for healthcare and he desires to be a full code. The patient stated that he drinks a 5th of vodka daily. He stated that he used cocaine approximately 4 years ago and no longer uses cocaine. He is chronically on pain narcotic for his lower back pain. The patient continues to smoke at least a pack a cigarette
[2020-10-04 23:48] VITALS: O2SAT 98
[2020-10-05] MEDS: NITROGLYCERIN SL 0.4 MG TABLET SUBLINGUAL (00:12)
[2020-10-05 00:13] VITALS: BP 98/62; PULSE 76; RESP 16; O2SAT 97
[2020-10-05 01:03] VITALS: BP 103/59; PULSE 74; RESP 19; O2SAT 97
[2020-10-05 03:05] VITALS: BP 108/72; PULSE 72; RESP 14; O2SAT 93
[2020-10-05 03:59] LABS: Troponin I < 0.012 ng/mL (0.000-0.034)
== END 2020-10-05 03:05 | disposition home or self-care (01) ==
PROVIDERS: Emergency Provider Emergency Medicine; PCP Family Medicine
DX: R07.9 Chest pain, unspecified (principal); I25.10 Atherosclerotic heart disease of native coronary artery without angina pectoris; G89.4 Chronic pain syndrome; I50.22 Chronic systolic (congestive) heart failure; I25.810 Atherosclerosis of coronary artery bypass graft(s) without angina pectoris; Z79.82 Long term (current) use of aspirin; J43.9 Emphysema, unspecified; I25.2 Old myocardial infarction; E78.5 Hyperlipidemia, unspecified; Z87.11 Personal history of peptic ulcer disease; Z95.5 Presence of coronary angioplasty implant and graft; Z95.1 Presence of aortocoronary bypass graft; F17.210 Nicotine dependence, cigarettes, uncomplicated; R94.31 Abnormal electrocardiogram [ECG] [EKG]
CPT/HCPCS: 36415; 71046; 71275; 80048; 84484; 85025; 85380; 85610; 85730; 93005; 99284; A9270; Q9967

== ENCOUNTER 2020-10-31 08:59 | Outpatient (CLI) | payer OTHER, SELFPAY ==
--- NOTE | 2020-11-19 08:57 | WPDHOMESLEEP ---
Sleep Study - Home Unattended Date of Study: 10/31/20 Ordering Provider: Tamra Banuelos, AD SETTER Interpreting Provider: Larisa Smith MD Home Sleep Study Type: Apnea Link Air Height: 1.75 m Weight: 90.718 kg Body Mass Index: 29.5 Neck Circumference (inches): 16 [place]: 24 Reason for Sleep Study Loud snoring, excessive daytime sleepiness Sleep History Elder Ro is a 50 year old man with extremely loud snoring, I snore like a beast as well as witnessed apneas. He wakes up throughout the night including the vamp marker hours. He has excessive daytime sleepiness. He constantly awakens from sleep feeling short of breath, with heartburn, belching and coughing, difficulty sleeping with a cold, gasping during the night, excessive nighttime sweating and heart palpitations during sleep. He constantly falls asleep while driving. He occasionally falls asleep while exerting physical effort. He does not have loss of muscle tone with strong emotion. He constantly has daytime difficulties due to his excessive sleepiness. He occasionally feels paralyzed on waking or falling asleep. He frequently has vivid dreamlike scenes upon awakening or falling asleep. He does not feel afraid to go to sleep. He occasionally has nightmares, occasionally remembers his dreams. He constantly has racing thoughts. He occasionally feels sad or depressed. He constantly has anxiety and muscular tension. He occasionally notices parts of his body jerking. He frequently kicks at night. He occasionally has crawling and aching feelings in his legs and occasionally has leg pain at night. He frequently has morning jaw pain. He constantly grind his teeth during sleep, is bothered by pain during the day, awakened by pain at night. He constantly wakes up feeling stiff in the morning with sore achy muscles and pain in the neck and spine. He has headaches, memory problems, concentration difficulties, sexual problems, fatigue and he takes antacids irregularly. He always has morning headaches. He is disabled. Normal bedtime is 9:00 p.m. falling asleep within 10 minutes waking 4 or 5 times over night to urinate, get a drink of water and go back to bed. He wakes the morning at 5:00 a.m.. His weekend schedule is the same. He is tired all the time. He takes naps in the afternoon or evening but these are not refreshing. He is drowsy in the morning for 2 hours or longer. Habits: Tobacco 1 pack per day. No caffeine. Heavy alcohol use, a fifth of vodka a day. [facility] Past Medical History Medical History Alcoholism Anxiety Arthritis BMI 31.0-31.9,adult Bone spur CAD (coronary artery disease) Carpal tunnel syndrome CHF (congestive heart failure) Chronic bilateral low back pain Chronic bronchitis Chronic pain syndrome Chronic systolic heart failure Congenital meatal stenosis COPD (chronic obstructive pulmonary disease) Coronary artery disease involving autologous artery coronary bypass graft Degenerative disc disease Drug dependence Emphysema lung Epididymitis Helicobacter pylori infection History of heart attack Hyperlipidemia Peptic ulcer disease Pericardial effusion Pinched nerve Pneumonia Shoulder joint pain Spinal stenosis Surgery, elective Right buttocks 7 cm intra muscular mass extraction due to extensive fat necrosis with dystrophic calcification fibrosis Tobacco abuse Surgical History Surgical History History of appendectomy History of bilateral carpal tunnel release History of intravascular stent placement 8 stents Hx of CABG One vessel S/P cubital tunnel release Family History Family History Father Heart disease Hypertension Sibling Cancer Hypertension Heart disease Colon cancer Grandparent Acute myocardial infarction Other No problems noted. Other N
[2020-11-19 09:10] VITALS: BMI 29.5
== END 2020-11-01 11:05 | disposition home or self-care (01) ==
LOC: ANHCSM 08:59
PROVIDERS: PCP Family Medicine; Visit Provider Nurse Practitioner Family
DX: G47.10 Hypersomnia, unspecified (principal); G47.33 Obstructive sleep apnea (adult) (pediatric)
CPT/HCPCS: 95806

== ENCOUNTER 2020-12-03 15:54 | Emergency (ER) | payer OTHER, SELFPAY ==
--- NOTE | 2020-12-03 15:57 | ECG_ITS ---
Measurements Intervals [place] Rate: 96 P: 58 [place]: 138 QRS: 68 QRSD: 88 T: 51 QT: 355 QTc: 450 Interpretive Statements SINUS RHYTHM MINIMAL Q WAVES- INFERIOR LEADS BORDERLINE ST-T WAVE ABNORMALITY- ANTERIOR LEADS BASELINE WANDER- V3-V5 BORDERLINE ECG Electronically Signed On 12-03-2020 17:15:48 CDT by Good Reyes D.O.
[2020-12-03 16:14] VITALS: BP 144/106; PULSE 102; RESP 20; TEMP 36.3; O2SAT 100
[2020-12-03 16:20] LABS: Basophils Absolute Auto 0.1 K/mm3 (0.0-0.1); Basophils Percent Auto 0.7 % (0.2-1.2); Eosinophils Absolute Auto 0.1 K/mm3 (0-0.3); Eosinophils Percent Auto 1.5 % (0-4.4); Hematocrit 44.2 % (42.0-52.0); Hemoglobin 15.4 g/dL (14.0-18.0); Immature Granulocyte Absolute 0.04 K/mm3 (0.00-0.031); Immature Granulocyte Percent A 0.4 % (0-0.5); Lymphocytes Absolute Auto 1.62 K/mm3 (0.9-3.2); Lymphocytes Percent Auto 17.6 % (18.3-44.2); Mean Corpuscular HGB Conc 34.8 g/dl (32-36); Mean Corpuscular Hemoglobin 33.6 pg (26-34); Mean Corpuscular Volume 96.5 fl (80-100); Mean Platelet Volume 9.1 fl (7.4-10.4); Monocytes Percent Auto 10.3 % (2.6-8.5); Neutrophils Absolute Auto 6.4 K/mm3 (1.3-6.7); Neutrophils Percent Auto 69.5 % (45.5-73.1); Platelet Count Result 252 k/mm3 (150-375); Red Blood Count 4.58 M/mm3 (4.6-6.20); White Blood Count 9.2 K/mm3 (4.5-10.0)
[2020-12-03 16:36] LABS: INR 0.9; Prothrombin Time 12.2 Seconds (11.1-14.7)
[2020-12-03 16:37] LABS: Partial Thromboplastin Time 24.9 SECONDS (22.3-36.8)
[2020-12-03 16:46] LABS: Anion Gap 9 mmol/L (8-16); Blood Urea Nitrogen 7 mg/dL (9-20); Calcium 9.2 mg/dL (8.4-10.2); Carbon Dioxide 25 mmol/L (22-30); Chloride 104 mmol/L (98-107); Estimated CRCL calculation 111 ml/min; Estimated Glomerular Filt Rate > 60; Glucose 117 mg/dL (65-110); Potassium 2.9 mmol/L (3.4-5.0); Sodium 138 mmol/L (137-145)
[2020-12-03 16:55] LABS: Troponin I < 0.012 ng/mL (0.000-0.034)
--- NOTE | 2020-12-03 18:20 | PC.NURSE ---
CALLED FOR VITAL SIGNS, NO ANSWER
--- NOTE | 2020-12-03 18:37 | PC.NURSE ---
CALLED FOR ROOM, NO ANSWER
--- NOTE | 2020-12-03 18:58 | PC.NURSE ---
NO ANSWER FOR CALL TO ROOM. LWBS
== END 2020-12-03 18:58 | disposition left against medical advice (07) ==
PROVIDERS: Emergency Provider Emergency Medicine; PCP Family Medicine
DX: R07.9 Chest pain, unspecified (principal)
CPT/HCPCS: 36415; 80048; 84484; 85025; 85610; 85730; 93005; 99199

== ENCOUNTER 2021-03-21 19:00 | Emergency (ER) | payer OTHER, SELFPAY ==
--- NOTE | ~2021-03-21 | XR_ITS ---
EXAMINATION: XR chest 2V DATE: 03/21/2021 19:55 INDICATION: Chest pain. TECHNIQUE: Frontal and lateral views of the chest were obtained. COMPARISON: Chest 2 views 10/04/2020, chest CT 10/04/2020 FINDINGS: There is no pneumonia, pleural effusion, or pneumothorax. Cardiomegaly is noted. Median vinnie rnotomy wires and mediastinal surgical clips are seen, likely from prior coronary artery bypass graft ing. IMPRESSION: 1. Cardiomegaly. Reviewed, dictated and finalized at location A. AGE SMASHER IMPRESSION: 1. Cardiomegaly.
--- NOTE | 2021-03-21 19:03 | ECG_ITS ---
Measurements Intervals [place] Rate: 80 P: 47 MA: 147 QRS: 44 QRSD: 89 T: 50 QT: 382 QTc: 441 Interpretive Statements SINUS RHYTHM LOW QRS VOLTAGE IN PRECORDIAL LEADS MINIMAL Q WAVES- INFERIOR LEADS BASELINE WANDER- V6 BORDERLINE ECG Electronically Signed On 03-22-2021 5:53:06 PROFESSOR OF ENVIRONMENTAL SCIENCE by Good Reyes D.O.
[2021-03-21 19:17] VITALS: BP 110/63; PULSE 83; RESP 20; TEMP 36.5; O2SAT 99
[2021-03-21 19:52] LABS: Basophils Absolute Auto 0.1 K/mm3 (0.0-0.1); Basophils Percent Auto 0.6 % (0.2-1.2); Eosinophils Absolute Auto 0.2 K/mm3 (0-0.3); Eosinophils Percent Auto 2.2 % (0-4.4); Hematocrit 38.5 % (42.0-52.0); Hemoglobin 13.1 g/dL (14.0-18.0); Immature Granulocyte Absolute 0.09 K/mm3 (0.00-0.031); Immature Granulocyte Percent A 0.8 % (0-0.5); Lymphocytes Absolute Auto 1.09 K/mm3 (0.9-3.2); Lymphocytes Percent Auto 10.2 % (18.3-44.2); Mean Corpuscular Hemoglobin 37.2 pg (26-34); Mean Corpuscular Volume 109.4 fl (80-100); Mean Platelet Volume 9.4 fl (7.4-10.4); Monocytes Absolute Auto 1.1 K/mm3 (0.1-0.6); Monocytes Percent Auto 10.7 % (2.6-8.5); Neutrophils Absolute Auto 8.1 K/mm3 (1.3-6.7); Neutrophils Percent Auto 75.5 % (45.5-73.1); Platelet Count Result 230 k/mm3 (150-375); Red Blood Count 3.52 M/mm3 (4.6-6.20); Red Cell Distribution Width 14.8 % (11.5-14.5); White Blood Count 10.7 K/mm3 (4.5-10.0)
[2021-03-21 20:02] LABS: Alanine Aminotransferase 29 U/L (4-50); Albumin Level 4.4 g/dL (3.5-5.1); Alkaline Phosphatase 88 U/L (38-126); Anion Gap 8 mmol/L (8-16); Aspartate Amino Transferase 40 U/L (17-59); Bilirubin,Total 0.4 mg/dL (0.2-1.3); Blood Urea Nitrogen 11 mg/dL (9-20); Calcium 9.3 mg/dL (8.4-10.2); Carbon Dioxide 26 mmol/L (22-30); Chloride 99 mmol/L (98-107); Estimated CRCL calculation 143 ml/min; Estimated Glomerular Filt Rate > 60; Glucose 97 mg/dL (65-110); INR 0.9; Lipase 153 U/L (23-300); Prothrombin Time 11.8 Seconds (11.1-14.7); Sodium 133 mmol/L (137-145)
[2021-03-21 20:03] LABS: Partial Thromboplastin Time 26.4 SECONDS (22.3-36.8)
[2021-03-21 20:14] LABS: Troponin I < 0.012 ng/mL (0.000-0.034)
--- NOTE | 2021-03-21 21:53 | PC.NURSE ---
no answer when called
== END 2021-03-22 04:25 | disposition left against medical advice (07) ==
LOC: ANHED 22:07
PROVIDERS: Emergency Provider Emergency Medicine; PCP Family Medicine
DX: R07.9 Chest pain, unspecified (principal); Z53.21 Procedure and treatment not carried out due to patient leaving prior to being seen by health care provider
CPT/HCPCS: 36415; 71046; 80053; 83690; 84484; 85025; 85610; 85730; 93005; 99199

== ENCOUNTER 2021-07-25 13:34 | Outpatient (CLI) | payer OTHER, SELFPAY ==
--- NOTE | ~2021-07-25 | MMUS_ITS ---
EXAMINATION: MM diagnostic mammo unilat RT, US breast RT limited HISTORY: Right breast lump TECHNIQUE: Additional 3-D tomosynthesis images of the breasts were performed and synthetic 2-D images were generated. CAD analysis was submitted and interpreted. High resolution Limited right breast ult rasound was performed. COMPARISON: None BREAST PARENCHYMAL COMPOSITION: Breast composed of scattered areas of fibroglandular density FINDINGS: MAMMOGRAPHIC FINDINGS: There is bilateral asymmetric gynecomastia. There are no suspicious masses, calcifications or archite ctural distortion to suggest malignancy. ULTRASOUND: Limited right breast ultrasound: Normal heterogeneous echotexture. No suspicious masses to suggest ma lignancy. IMPRESSION: 1. No evidence for malignancy. Benign bilateral asymmetric gynecomastia. 2. Recommend follow-up clinical management for gynecomastia. BI-RADS Category 2: Benign finding(s). Reviewed, dictated and finalized at location A. IMPRESSION: 1. No evidence for malignancy. Benign bilateral asymmetric gynecomastia. 2. Recommend follow-up clinical management for gynecomastia. BI-RADS Category 2: Benign finding(s).
== END 2021-07-25 13:35 | disposition home or self-care (01) ==
PROVIDERS: PCP Family Medicine; Visit Provider Nurse Practitioner Adult Health
DX: N63.10 Unspecified lump in the right breast, unspecified quadrant (principal)
CPT/HCPCS: 76642; 77065

== ENCOUNTER 2022-10-15 01:56 | Day surgery (SDC) | payer OTHER, SELFPAY ==
[2022-10-13 13:50] VITALS: BMI 26.0
--- NOTE | 2022-10-13 13:59 | PC.NURSE ---
Report to the Outpatient Waiting Room, entrance under the green pavilion located off [facility], at time 0600_ on date _10/15/22_. Planned Procedure Time: 0730_. Time changes happen often and if your time is changed the preop area will call you the afternoon before. - You and your visitor will be asked to self-screen and do not enter if you have any COVID symptoms. - A mask is optional within the hospital at this time. Patients may have clear liquids (water, carbonated beverages, clear teas, apple juice) until 3 hours prior to surgery with a maximum of 20 ounces. - No food from midnight until time of surgery - Infants may have breast milk until 4 hours before surgery, formula 6 hours prior to surgery. - Children will be allowed to drink immediately following surgery. If applicable, please bring a bottle or sippy cup to assist with drinking. Juice, water, soda, and popsicles are readily available. For infants on formula, please bring formula the day of surgery. Pacifiers are allowed. Take the following medications with a SIP of water the morning of surgery: __BREZTRI, FLEXERIL, GABAPENTIN, PAIN MEDICATION DO NOT STOP ANY OF YOUR OTHER PRESCRIPTION MEDICATIONS PRIOR TO SURGERY ?EXCEPT THE FOLLOWING Medications to discontinue per physician NONE Date to take last dose Please no make-up, nail finnish, hairspray, perfume, deodorant, or body powder the day of surgery. No jewelry (including any body piercings) or valuables the day of surgery, leave them at home. Please take a shower or bath the night before, or the morning of, surgery with an antibacterial soap. Wear comfortable, loose fitting clothing. Children are encouraged to wear pajamas. - Jewelry must be removed prior to entering the operating room. Rings and piercings that are not removed may be cut off. - The hospital will not accept responsibility for valuables. - Please leave all valuables, including medications, at home the day of surgery. If you are going home after surgery, a licensed motor bus driver must drive you home. - NO public transportation without another adult if you receive anesthesia. - We recommend that an adult stay with you for 24 hours following discharge. - We also recommend that you do not drive, make important decision, drink alcoholic beverages, or take any drugs that were not prescribed by your health care provider for at least 24 hours after your discharge time. For Pediatric surgeries, we recommend two adults accompany the child home. Follow any additional instructions given to you from your surgeon. If you or anyone in your household have experienced Covid symptoms in the past week, please notify your surgeon or the nurse liaison at the phone number below for possible testing. Telephone instructions given to patient and asked if any additional questions and then verbalized understanding. Patient advised to call surgeon office or pre surgery nurse liaison [phone] if any additional questions.
[2022-10-15 06:08] VITALS: BP 153/98; PULSE 87; RESP 20; TEMP 36.2; O2SAT 100
[2022-10-15] MEDS: LACTATED RINGERS 1,000 ML 30 ML IV CONT ×2 (06:25→08:18)
--- NOTE | 2022-10-15 06:32 | WPDANESEPPF ---
Anes - Initial Pre Proc Eval Procedure: Operation Date: 10/15/22 07:30 Proposed Procedures p Bilateral Open Carpal Tunnel Release - Ori Clayton MD Date/Time: 10/15/22 06:32 Surgeon: Ori Clayton MD Pre Op Diagnosis: bilat carpal tunnel syndrome Patient Data Age: 52 Gender: M Height: 1.75 m Weight: 80 kg Allergies Allergy/AdvReac Type Severity Reaction Status Date / Time chlordiazepoxide Allergy Severe Swelling Verified 10/15/22 06:19 [From Librium] of Lip/Tongue/Throat Home Medications Medication Instructions Recorded Confirmed Type aspirin 81 mg tablet,delayed 81 mg PO DAILY 05/01/20 10/15/22 History release (Adult Low Dose Aspirin) nitroglycerin 0.4 mg sublingual 0.4 mg sublingual Q5M PRN Chest 05/01/20 10/15/22 History tablet Pain clopidogrel 75 mg tablet (Plavix) 75 mg PO DAILY 07/27/20 10/15/22 History oxycodone-acetaminophen 10 mg-325 1 tablet PO Q4H PRN Pain 07/27/20 10/15/22 History mg tablet pantoprazole 40 mg tablet,delayed 40 mg PO BID 08/03/20 10/15/22 History release budesonide 160 mcg-glycopyr 9 2 inh inhalation BID 09/06/20 10/15/22 History mcg-formot 4.8 mcg/actuation HFA inhaler (Breztri Aerosphere) cyclobenzaprine 10 mg tablet 10 mg PO TID 10/13/22 10/15/22 History gabapentin 300 mg tablet 300 mg PO TID 10/13/22 10/15/22 History magnesium oxide 400 mg PO BID 10/13/22 10/15/22 History potassium 20 mg chewable tablet 20 mg PO DAILY 10/13/22 10/15/22 History spironolactone 25 mg tablet 25 mg PO DAILY 10/13/22 10/15/22 History Patient hx anesthesia problems: none Family hx anesthesia problems: none Results Review: All pre-operative results and documents have been reviewed as part of the pre-operative evaluation. [facility] Past Medical History Medical History Alcoholism Anxiety Arthritis BMI 31.0-31.9,adult Bone spur CAD (coronary artery disease) Carpal tunnel syndrome CHF (congestive heart failure) Chronic bilateral low back pain Chronic bronchitis Chronic pain syndrome Chronic systolic heart failure Congenital meatal stenosis COPD (chronic obstructive pulmonary disease) Coronary artery disease involving autologous artery coronary bypass graft Degenerative disc disease Drug dependence Emphysema lung Epididymitis Helicobacter pylori infection History of heart attack Hyperlipidemia Peptic ulcer disease Pericardial effusion Pinched nerve Pneumonia Shoulder joint pain Spinal stenosis Surgery, elective Right buttocks 7 cm intra muscular mass extraction due to extensive fat necrosis with dystrophic calcification fibrosis Tobacco abuse Surgical History Surgical History History of appendectomy History of bilateral carpal tunnel release History of intravascular stent placement 8 stents Hx of CABG One vessel S/P cubital tunnel release Family History Family History Father Heart disease Hypertension Sibling Cancer Hypertension Heart disease Colon cancer Grandparent Acute myocardial infarction Other No problems noted. Other No problems noted. Mother Hypertension Heart disease Social History Social History Social History: The patient is disabled. He lives with his figabrielae. He has 1 child. His figabrielae is the durable power claim attorney for healthcare and he desires to be a full code. The patient stated that he drinks a 5th of vodka daily. He stated that he used cocaine approximately 4 years ago and no longer uses cocaine. He is chronically on pain narcotic for his lower back pain. The patient continues to smoke at least a pack a cigarettes a day. Smoking packs per day: 1 Smoking cigarettes per day: 20.0 Years smoked: 37 Smoking pack-years: 37.00 Smoking status: Current every day smoker
--- NOTE | 2022-10-15 07:10 | WPDHPUPDATE1 ---
History and Physical Update Update Date/Time: 10/15/22 07:10 History and Physical has been reviewed, including an updated exam of the patient. There are NO changes in the patient's condition. Risks, benefits, and alternatives have been discussed and questions answered. Patient agrees to proceed with procedure.
[2022-10-15] MEDS: LIDO 1%/EPINEPHRINE 1:100,000 50 ML VIAL 8 ML INFILTRATE (07:23)
[2022-10-15] MEDS: BACITRACIN OINTMENT 15 GM TUBE 1 APPLIC TOPICAL (07:23)
[2022-10-15 08:18] VITALS: BP 111/80; PULSE 77; RESP 16; O2SAT 99
--- NOTE | 2022-10-15 08:32 | W.PM.PROC2 ---
Procedure Note - Detailed Date of Procedure 10/15/22 Pre-op Diagnosis bilat carpal tunnel syndrome Post-op Diagnosis Same Procedure Performed Bilateral open carpal tunnel release Surgeon Ori Clayton MD Anesthesia MAC Description of Procedure The 2 carpal tunnel sites were marked with his consent the holding area. He was taken to the operating room where he was placed supine on the operating table. He was given IV sedation. Both upper extremities were prepped and draped in the usual fashion. The has a right arm IV and the tourniquet was placed at the distal forearm. Both sites were remarked for the incisions and locally infiltrated with 1% lidocaine with epinephrine. The right side was done 1st with inflation of the tourniquet to 250 mmHg on the forearm. The incision was made as marked. Blunt dissection revealed the palmar aponeurosis. This and the transverse retinaculum were incised with 15. Blade. Under 3 point retraction the ligament was divided distally and proximally for complete release. No unusual anatomy was noted. The skin was closed with interrupted 4-0 nylon suture. Attention was turned to the left upper extremity. The extremity was exsanguinated and the tourniquet inflated to 250 mmHg.The tourniquet was inflated to 250 mmHg. The incision was made as marked. Blunt dissection revealed the palmar aponeurosis and the transverse retinaculum. Both were divided with a 15 blade. Under 3 point retraction the retinaculum was divided distally and proximally for complete release. The unusual anatomy was noted. The skin was closed with interrupted 4-0 nylon suture and the usual bandage applied the tourniquet was released. The patient was awakened and discharged from the operating room stable condition. Estimated Blood Loss 2 Drains No Packing No Pathology None sent Complications No immediate complications Condition Stable Disposition Same day
[2022-10-15 08:45] VITALS: BP 163/92; PULSE 70; RESP 16; O2SAT 100
== END 2022-10-15 09:01 | disposition home or self-care (01) ==
PROVIDERS: PCP Family Medicine; Visit Provider Plastic Surgery
PROC: (CPT 64721; principal; 2022-10-15 07:30)
DX: G56.03 Carpal tunnel syndrome, bilateral upper limbs (principal); I50.22 Chronic systolic (congestive) heart failure; J44.9 Chronic obstructive pulmonary disease, unspecified; I25.10 Atherosclerotic heart disease of native coronary artery without angina pectoris; I25.810 Atherosclerosis of coronary artery bypass graft(s) without angina pectoris; I25.2 Old myocardial infarction; E78.5 Hyperlipidemia, unspecified; G89.4 Chronic pain syndrome; Z95.820 Peripheral vascular angioplasty status with implants and grafts; F10.20 Alcohol dependence, uncomplicated; F17.210 Nicotine dependence, cigarettes, uncomplicated; Z79.82 Long term (current) use of aspirin; Z79.02 Long term (current) use of antithrombotics/antiplatelets; Z79.891 Long term (current) use of opiate analgesic; Z79.51 Long term (current) use of inhaled steroids
CPT/HCPCS: 64721; A9270; J2250; J2405; J2704; J3010; J7120